=== PATIENT | male | born 2000 | race Caucasian/White ===

== ENCOUNTER 2018-02-10 16:41 | Emergency (ER) | payer OTHER ==
[2018-02-10] MEDS: IBUPROFEN 600 MG TAB PO (20:19)
[2018-02-10] MEDS: CEPHALEXIN 500 MG CAP PO (20:19)
== END 2018-02-10 20:23 | disposition home or self-care (01) ==
LOC: M ED 16:41
DX: L02.413 Cutaneous abscess of right upper limb (principal); L03.113 Cellulitis of right upper limb; W57.XXXA Bitten or stung by nonvenomous insect and other nonvenomous arthropods, initial encounter; Y92.89 Other specified places as the place of occurrence of the external cause; F17.210 Nicotine dependence, cigarettes, uncomplicated
CPT/HCPCS: 99283

== ENCOUNTER 2018-08-06 12:38 | Inpatient (IN) | payer OTHER ==
[~2018-08-06] VITALS: Ht 170.2 cm; Wt 70.1 kg
[~2018-08-06 12:38] MED LIST: IBUP-1022 PO; KEFL500C17 PO
[2018-08-06 13:26] LABS: HEMATOCRIT 44.7 % (42.0-52.0); HEMOGLOBIN 14.6 g/dl (13.5-17.5); MEAN CORPUSCULAR HEMOGLOBIN 28.6 pg (27.0-33.0); MEAN CORPUSCULAR HGB CONC 32.7 g/dl (32.0-36.5); MEAN CORPUSCULAR VOLUME 87.5 fl (80.0-96.0); PLATELET COUNT, AUTOMATED 262 10^3/uL (150-450); RED BLOOD COUNT 5.11 10^6/uL (4.30-6.10); WHITE BLOOD COUNT 5.9 10^3/uL (4.0-10.0)
[2018-08-06 13:46] LABS: AMPHETAMINES LEVEL URINE NEGATIVE (NEGATIVE); BARBITURATES URINE NEGATIVE (NEGATIVE); BENZODIAZEPINES URINE NEGATIVE (NEGATIVE); CANNABINOIDS URINE NEGATIVE (NEGATIVE); COCAINE METABOLITE URINE NEGATIVE (NEGATIVE); METHADONE URINE NEGATIVE (NEGATIVE); OPIATES URINE NEGATIVE (NEGATIVE); PHENCYCLIDINE URINE NEGATIVE (NEGATIVE)
[2018-08-06 14:02] LABS: ACETAMINOPHEN LEVEL < 2.0 UG/ML (10.0-30.0); ALT/SGPT 33 U/L (12-78); BILIRUBIN,DIRECT 0.1 MG/DL (0.0-0.2); BILIRUBIN,TOTAL 0.6 MG/DL (0.2-1.0); BLOOD UREA NITROGEN 8 MG/DL (7-18); CALCIUM LEVEL 8.6 MG/DL (8.5-10.1); CARBON DIOXIDE LEVEL 28 MEQ/L (21-32); CHLORIDE LEVEL 108 MEQ/L (98-107); CREATININE FOR GFR 0.74 MG/DL (0.70-1.30); GLUCOSE, FASTING 96 MG/DL (70-100); POTASSIUM SERUM 4.3 MEQ/L (3.5-5.1); SALICYLATE LEVEL < 1.7 MG/DL (5.0-30.0); SODIUM LEVEL 143 MEQ/L (136-145); TOTAL PROTEIN 7.3 GM/DL (6.4-8.2)
[2018-08-06 14:03] LABS: ETHYL ALCOHOL (ETHANOL) < 0.003 % (0.000-0.010)
[2018-08-06] MEDS ORDERED: MOM 30ML SUSPENSION UDC PO PRN (17:00)
[2018-08-06] MEDS ORDERED: MAALOX 30 ML SUSP *UDC PO PRN (17:00)
[2018-08-06] MEDS ORDERED: traZODone 50 MG TAB PO PRN (17:00)
[2018-08-06] MEDS ORDERED: ACETAMINOPHEN TAB 650MG DOSE (2X325MG) PO PRN (17:00)
[2018-08-06 18:12] VITALS: BP 143/78
[2018-08-07 06:04] VITALS: BP 126/68
--- NOTE | 2018-08-07 09:28 | HPEPDOC ---
[facility] Medical History & Physical Date of Admission Aug 06, 2018 History and Physical PCP: [facility] ATTENDING: Dr. Jennifer Mason HPI: 17yoM admitted to [facility] for unspecified depressive disorder, being medically examined today. No acute medical complaints today. Denies any fevers, chills, weakness, fatigue, LUA, CP, SOB, cough, palpitations, abdominal pain, N/V/D or changes in bowel or bladder habits. PMHx: anxiety depression SI PSHX: tympanostomy tubes wisdom teeth extraction SOCHX: Resides in: [facility], From [place] Marital Status: single Kids: enone Employment: Active duty Tobacco use: 1/2 ppd ETOH: 4-6 drinks per month Illicit Drugs: Denies IV Drug Use: Denies Tattoos done unprofessionally: Denies FAMHX: Mother: Alive, well Father: Alive, well Siblings: Alive, well Children: none Unexpected deaths due to medical reasons: None. ROS: As noted in HPI, otherwise 11pt ROS of systems reviewed and unremarkable. PE: GEN: 17yoM, appears stated age. Well-nourished, well developed. No acute distr ess. Alert and oriented x 3. Pleasant, interactive. HEENT: Normocephalic, atraumatic. Pupils are equal, round, and reactive to light. Extraocular movements are intact. No nystagmus appreciated. Sclera are nonicteric. Conjunctiva without injection. Nose midline. Nasal turbinates without bogginess. EACs both patent BL. TMs both visualized and rosado with good cone of light, no bulging or erythema. No facial asymmetry. Moist mucous membranes. Dentition fair. Pharynx pink and moist, no cobblestoning. Neck supple, trachea midline. No lymphadenopathy or thyromegaly appreciated. CHEST: Regular rate and rhythm, +S1, +S2 LUNGS: Clear to auscultation bilaterally. No wheezes, rales, or rhonchi. Breathi ng appears symmetric and easy. Patient is speaking in full sentences. No accessory muscle use. ABD: Round, soft, non-tender, non-distended. +Bowel sounds throughout. No rebound or guarding. No costovertebral angle tenderness. EXT: Pulses 2+ bilaterally dorsalis pedis and radial. No lower extremity edema appreciated. SKIN: [place], dry, warm. Capillary refill <2sec. No rashes. NEURO: Alert and oriented x 3. Cranial nerves III-XII are intact. No focal deficits appreciated. EKG: pending A&P: 17yoM admitted to [facility] for unspecified depressive disorder 1. Psych. Plan per Psychiatry. Obtain baseline EKG to assure the safety of psychiatric medications as they can prolong the QT interval. 2. Nicotine dependence. Patch available. 3. Follow up with PCP on discharge. 4. Staff member Bill present throughout exam. Vital Signs Vital Signs Date Time Temp Pulse Resp B/P (MAP) Pulse Ox O2 Delivery O2 Flow Rate FiO2 08/07/18 06:04 97.9 94 16 126/68 (87) 08/06/18 18:12 97 08/06/18 17:17 Room Air Laboratory Data Labs 24H Laboratory Tests 2 08/06/18 13:11: Nucleated Red Blood Cells % (auto) 0.0, Anion Gap 7L, Calcium Level 8.6, Aspartate Amino Transf (AST/SGOT) 31, Alanine Aminotransferase (ALT/SGPT) 33, Alkaline Phosphatase 86, Total Bilirubin 0.6, Direct Bilirubin 0.1, Total Protein 7.3, Albumin 4.0, Albumin/Globulin Ratio 1.21, Thyroid Stimulating Hormone (TSH) 2.570, Salicylates Level < 1.7L, Urine Amphetamines Screen NEGATIVE, Urine Benzodiazepines Screen NEGATIVE, Urine Opiates Screen NEGATIVE, Urine Methadone Screen NEGATIVE, Acetaminophen Level < 2.0L, Urine Barbiturates Screen NEGATIVE, Urine Phencyclidine Screen NEGATIVE, Urine Cocaine Metabolite Screen NEGATIVE, Urine Cannabinoids Screen NEGATIVE, Ethyl Alcohol Level < 0.003 CBC/BMP Laboratory Tests 08/06/18 13:11 Red Blood Count 5.11, Mean Corpuscular Volume 87.5, Mean Corpuscular Hemoglobin 28.6, Mean Corpuscular Hemoglobin Concent 32.7, Red Cell Distribution Width 12.2 Home Medications No Active Prescriptions or Reported Meds Allergies Coded Allergies: No Known Allergies (Unverified , 08/06/18) Katelyn Vidal Aug 07, 2018 09:28
[2018-08-07] MEDS: NICOTINE 21MG/24HR 1 EA TRANSDERMAL TD SCH ×2 (09:58→10:01)
[2018-08-07] MEDS ORDERED: hydrOXYzine 50 MG TAB PO PRN (15:15)
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
[2018-08-07 18:00] VITALS: BP 135/64
[2018-08-07] MEDS: MIRTAZAPINE 15 MG TAB PO SCH (21:49)
[2018-08-08 06:19] VITALS: BP 119/75
--- NOTE | 2018-08-08 08:40 | ECGEPIP ---
Stationary ECG Study [facility] ED Test Date: 2018-08-06 Pat Name: MARIA ELENA MUHAMMAD Department: Room: [place] [address] Gender: M Director Of Science: : 2000 Requested By: IVETTE Perez Order Number: [id number] Reading MD: Kika Wolfe Measurements Intervals [place] Rate: 72 P: 56 [place]: 164 QRS: 89 QRSD: 98 T: 48 QT: 357 QTc: 392 Interpretive Statements SINUS RHYTHM WITH MARKED SINUS ARRHYTHMIA NONSPECIFIC ST T WAVE CHANGES NO OLD ECG FOR COMPARISON Electronically Signed On 08-08-2018 8:39:43 EST by Kika Wolfe
[2018-08-08] MEDS ORDERED: SERTRALINE HCL 50 MG TAB PO SCH (09:00)
[2018-08-08] MEDS: NICOTINE 21MG/24HR 1 EA TRANSDERMAL TD SCH (09:27)
--- NOTE | 2018-08-08 10:12 | ECGEPIP ---
Stationary ECG Study [facility] Test Date: 2018-08-07 Pat Name: MARIA ELENA MUHAMMAD Department: Room: [place] [address] Gender: M Cyber Security Consultant: NARCISO : 2000 Requested By: Katelyn Vidal Order Number: [id number] Reading MD: Rc Hoskins Measurements Intervals [place] Rate: 74 P: 48 [place]: 158 QRS: 94 QRSD: 89 T: 61 QT: 345 QTc: 383 Interpretive Statements SINUS RHYTHM BORDERLINE RIGHT AXIS DEVIATION No sinus arrhythmia compared with 08/06/2018 at 1503 hrs. Electronically Signed On 08-08-2018 10:11:38 EST by Rc Hoskins
[2018-08-08 18:04] VITALS: BP 129/66
--- NOTE | 2018-08-08 18:22 | MHIPNPDOC ---
[facility] Progress Note Progress Note DATE OF SERVICE: 08/08/18 HISTORY: Patient attempted to hang himself History of Present Illness HISTORY OF THE PRESENT ILLNESS: Patient is a 17 -year-old , male, who, according to ED report: "Pt presented with chain of command after telling someone he attempted suicide yesterday. Pt says he used Uber to get a ride to [employer] and then attempted to hang self with his bootlaces in a hotel room. The coat rakesh in the closet broke and pt did not make any further attempts and returned to [place]. Pt says he has had frequent thoughts of various plans to commit suicide for months but has never acted upon them before yesterday. He says he has been very depressed since last Fall and this is made worse because he does not have any support and his co-workers do not like him or talk to him. He spends a great deal of time isolating himself from others. Pt spoke to his mother last night and told her of his attempt. Apparently she encouraged him to tell someone and come to the hospital. Pt denies any previous admissions to psych unit. Also denies any hx of tx, no medications, no problems with drugs or ETOH. Denies HI, A/VH. Pt continues to feel suicidal. He appears depressed. Speech is very soft. Eye contact is minimal. Pt's family resides in [place]. 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 NEW TEST RESULTS: See blow. CURRENT MEDICATIONS: See below. MENTAL STATUS EXAMINATION: Patient is a 17-year old male, who is alert, cooperative, unkempt, disheveled. Speech: Is spontaneous, fluent, normal rate, tone and volume. Language skills are good. Thought processes including: intact, linear, coherent. Thought content: He reports he still has SI, once every 3 hours and before he was experiencing twice an hour. Abstract reasoning, and computation: Good. Description of associations: good Description of abnormal or psychotic thoughts: patient denies homicidal ideation, denies AV hallucinations, denies thought delusions Judgment: poor Insight: poor Orientation: x 3 Recent and remote memory: intact Attention span and concentration: fair Fund of knowledge: average Mood: depressed Affect: congruent with mood, depressed. DIAGNOSES: 1. Major Depressive Disorder, severe, recurrent 2. CARYN 3. R/O PTSD ASSESSMENT:patient continues to be depressed, but he says he had more energy today compared to previous days. he says he was able to sleep better last night. Continues to endorse SI but they're less frequent than they used to be. He says that if he has SI that he can't control MANAGEMENT PLAN: Will increase Sertraline to 75 mgs PO daily, will encourage group attendance. TIME SPENT: 20 minutes. Vital Signs Vital Signs Date Time Temp Pulse Resp B/P (MAP) Pulse Ox O2 Delivery O2 Flow Rate FiO2 08/08/18 18:04 99.2 98 18 129/66 (87) 08/06/18 18:12 97 08/06/18 17:17 Room Air Current Medications Current Medications Acetaminophen (Tylenol Tab) 650 mg Q6HP PRN PO HEADACHE or DISCOMFORT; Start 08/06/18 at 17:00 Al Hydrox/Mg Hydrox/Simethicone (Mylanta) 30 ml Q4HP PRN PO HEARTBURN/INDIGESTION; Start 08/06/18 at 17:00 Home Med (Med Rec Complete!) ASDIRECTED XX ; Start 08/06/18 at 17:45; Stop 08/06/18 at 17:45; Status DC Hydroxyzine HCl (Atarax) 50 mg Q6HP PRN PO ANXIETY/AGITATION; Start 08/07/18 at 15:15 Magnesium Hydroxide (Milk Of Magnesia) 30 ml DAILYPRN PRN PO CONSTIPATION; Start 08/06/18 at 17:00 Mirtazapine (Remeron) 15 mg QHS PO Last administered on 08/07/18at 21:49; Start 08/07/18 at 21:00 Nicotine (Nicoderm Cq 21mg) 1 patch DAILY TD Last administered on 08/08/18at 09:27; Start 08/06/18 at 09:00 Sertraline HCl (Zoloft) 50 mg QAM PO Last administered on 08/08/18at 09:26; Start 08/08/18 at 09:00 Trazodone HCl (Desyrel) 50 mg QHSP PRN PO INSOMNIA; Start 08/06/18 at 17:00; S tatus Cancel Allergies Coded Allergies: No Known Allergies (Unverified , 08/06/18) EDUARDA PANDEY MD Aug 08, 2018 18:22
[2018-08-08] MEDS: MIRTAZAPINE 15 MG TAB PO SCH (22:21)
[2018-08-09 06:10] VITALS: BP 112/63
[2018-08-09] MEDS ORDERED: SERTRALINE HCL 50 MG TAB PO SCH (09:00)
[2018-08-09] MEDS: NICOTINE 21MG/24HR 1 EA TRANSDERMAL TD SCH (10:06)
[2018-08-09] MEDS ORDERED: SERTRALINE HCL 25 MG TABLET PO ONE (13:30)
--- NOTE | 2018-08-09 14:08 | MHIPNPDOC ---
[facility] Progress Note Progress Note DATE OF SERVICE: 08/09/18 HISTORY OF THE PRESENT ILLNESS: Patient is a 17 -year-old , male, who, according to ED report: "Pt presented with chain of command after telling someone he attempted suicide yesterday. Pt says he used Uber to get a ride to [place] and then attempted to hang self with his bootlaces in a hotel room. The coat rakesh in the closet broke and pt did not make any further attempts and returned to [place]. Pt says he has had frequent thoughts of various plans to commit suicide for months but has never acted upon them before yesterday. He says he has been very depressed since last Fall and this is made worse because he does not have any support and his co-workers do not like him or talk to him. He spends a great deal of time isolating himself from others. Pt spoke to his mother last night and told her of his attempt. Apparently she encouraged him to tell someone and come to the hospital. Pt denies any previous admissions to psych unit. Also denies any hx of tx, no medications, no problems with drugs or ETOH. Denies HI, A/VH. Pt co ntinues to feel suicidal. He appears depressed. Speech is very soft. Eye contact is minimal. Pt's family resides in [place]. 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 NEW TEST RESULTS: See blow. CURRENT MEDICATIONS: See below. MENTAL STATUS EXAMINATION: Patient is a 17-year old male, who is alert, cooperative, unkempt, disheveled. Speech: slow, low volume, spontaneous but not fluent. Language skills are good. Thought processes including: coherent but it is hard for him to answer at times because he thinks twice before he gives an answer, he is very afraid of rejection. Thought content: He reports he still has SI, once every 3 hours and before he was experiencing twice an hour. Abstract reasoning, and computation: Good. Description of associations: good Description of abnormal or psychotic thoughts: patient denies homicidal ideation, denies AV hallucinations, denies thought delusions Judgment: poor Insight: poor Orientation: x 3 Recent and remote memory: intact Attention span and concentration: fair Fund of knowledge: average Mood: depressed Affect: congruent with mood, depressed. DIAGNOSES: 1. Major Depressive Disorder, severe, recurrent 2. CARYN 3. R/O PTSD ASSESSMENT: Increased Sertraline to 100 mgs today and started him on Abilify 2.5 mgs PO BID. encouraged him to have a shower, to take care of himself. Explained that we understand he has not been doing it because he has been very depressed, extremely depressed but by doing this he will feel better with himself. 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 TW explained that jack tamp operator must contact [facility] to see if they are agreeable to him going for [facility]. he said he was going to go and have a shower and he would try to attend groups MANAGEMENT PLAN: Increase Sertraline to 100 mgs Po daily and start Abilify 2.5 mgs PO BID TIME SPENT: 20 minutes. Vital Signs Vital Signs Date Time Temp Pulse Resp B/P (MAP) Pulse Ox O2 Delivery O2 Flow Rate FiO2 08/09/18 06:10 98.8 67 14 112/63 (79) 08/06/18 18:12 97 08/06/18 17:17 Room Air Current Medications Current Medications Acetaminophen (Tylenol Tab) 650 mg Q6HP PRN PO HEADACHE or DISCOMFORT; Start 08/06/18 at 17:00 Al Hydrox/Mg Hydrox/Simethicone (Mylanta) 30 ml Q4HP PRN PO HEARTBURN/INDIGESTION; Start 08/06/18 at 17:00 Home Med (Med Rec Complete!) ASDIRECTED XX ; Start 08/06/18 at 17:45; Stop 08/06/18 at 17:45; Status DC Hydroxyzine HCl (Atarax) 50 mg Q6HP PRN PO ANXIETY/AGITATION; Start 08/07/18 at 15:15 Magnesium Hydroxide (Milk Of Magnesia) 30 ml DAILYPRN PRN PO CONSTIPATION; Start 08/06/18 at 17:00 Mirtazapine (Remeron) 15 mg QHS PO Last administered on 08/08/18at 22:21; Start 08/07/18 at 21:00 Nicotine (Nicoderm Cq 21mg) 1 patch DAILY TD Last administered on 08/09/18at 10:06; Start 08/06/18 at 09:00 Sertraline HCl (Zoloft) 50 mg QAM PO Last administered on 08/08/18at 09:26; Start 08/08/18 at 09:00; Stop 08/08/18 at 18:42; Status DC Sertraline HCl (Zoloft) 75 mg QAM PO Last administered on 08/09/18at 10:06; Start 08/09/18 at 09:00 Trazodone HCl (Desyrel) 50 mg QHSP PRN PO INSOMNIA; Start 08/06/18 at 17:00; S tatus Cancel Allergies Coded Allergies: No Known Allergies (Unverified , 08/06/18) EDUARDA PANDEY MD Aug 09, 2018 10:58
[2018-08-09] MEDS: ARIPiprazole 2 MG TAB PO SCH ×2 (14:21→21:41)
[2018-08-09 18:02] VITALS: BP 156/78
[2018-08-09] MEDS: MIRTAZAPINE 15 MG TAB PO SCH (21:41)
[2018-08-10 06:00] VITALS: BP 116/65
[2018-08-10] MEDS: NICOTINE 21MG/24HR 1 EA TRANSDERMAL TD SCH (08:38)
[2018-08-10] MEDS: ARIPiprazole 2 MG TAB PO SCH (08:38)
[2018-08-10] MEDS: SERTRALINE 100 MG TAB PO SCH (08:38)
--- NOTE | 2018-08-10 16:47 | MHIPNPDOC ---
[facility] Progress Note Progress Note DATE OF SERVICE: 08/10/18 HISTORY OF THE PRESENT ILLNESS: Patient is a 17 -year-old , male, who, according to ED report: "Pt presented with chain of command after telling someone he attempted suicide yesterday. Pt says he used Uber to get a ride to [place] and then attempted to hang self with his bootlaces in a hotel room. The coat rakesh in the closet broke and pt did not make any further attempts and returned to [place]. Pt says he has had frequent thoughts of various plans to commit suicide for months but has never acted upon them before yesterday. He says he has been very depressed since last Fall and this is made worse because he does not have any support and his co-workers do not like him or talk to him. He spends a great deal of time isolating himself from others. Pt spoke to his mother last night and told her of his attempt. Apparently she encouraged him to tell someone and come to the hospital. Pt denies any previous admissions to psych unit. Also denies any hx of tx, no medications, no problems with drugs or ETOH. Denies HI, A/VH. Pt co ntinues to feel suicidal. He appears depressed. Speech is very soft. Eye contact is minimal. Pt's family resides in [place]. 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 NEW TEST RESULTS: See blow. CURRENT MEDICATIONS: See below. MENTAL STATUS EXAMINATION: Patient is a 17-year old male, who is alert, cooperative, unkempt, disheveled. Speech: slow, low volume, spontaneous but not fluent. Language skills are good. Thought processes including: coherent but it is hard for him to answer at times because he thinks twice before he gives an answer, he is very afraid of rejection. Thought content: He reports he still has SI, once every 3 hours and before he was experiencing twice an hour. Abstract reasoning, and computation: Good. Description of associations: good Description of abnormal or psychotic thoughts: patient denies homicidal ideation, denies AV hallucinations, denies thought delusions Judgment: poor Insight: poor Orientation: x 3 Recent and remote memory: intact Attention span and concentration: fair Fund of knowledge: average Mood: depressed Affect: congruent with mood, depressed. DIAGNOSES: 1. Major Depressive Disorder, severe, recurrent 2. CARYN 3. R/O PTSD ASSESSMENT: MANAGEMENT PLAN: will continue with Sertraline 100 mgs Po daily and will decrease Abilify from 2 mgs PO bid to 2 mgs Po QAM. he has agreed to go to senior living treatment. TIME SPENT: 20 minutes. Vital Signs Vital Signs Date Time Temp Pulse Resp B/P (MAP) Pulse Ox O2 Delivery O2 Flow Rate FiO2 08/10/18 06:00 98.0 80 18 116/65 (82) 97 08/06/18 17:17 Room Air Current Medications Current Medications Acetaminophen (Tylenol Tab) 650 mg Q6HP PRN PO HEADACHE or DISCOMFORT; Start 08/06/18 at 17:00 Al Hydrox/Mg Hydrox/Simethicone (Mylanta) 30 ml Q4HP PRN PO HEARTBURN/INDIGESTION; Start 08/06/18 at 17:00 Aripiprazole (AbiLIFY) 2 mg BID PO Last administered on 08/10/18 08:38; Start 08/09/18 at 09:00 Home Med (Med Rec Complete!) ASDIRECTED XX ; Start 08/06/18 at 17:45; Stop 08/06/18 at 17:45; Status DC Hydroxyzine HCl (Atarax) 50 mg Q6HP PRN PO ANXIETY/AGITATION; Start 08/07/18 at 15:15 Magnesium Hydroxide (Milk Of Magnesia) 30 ml DAILYPRN PRN PO CONSTIPATION; Start 08/06/18 at 17:00 Mirtazapine (Remeron) 15 mg QHS PO Last administered on 08/09/18at 21:41; Start 08/07/18 at 21:00 Nicotine (Nicoderm Cq 21mg) 1 patch DAILY TD Last administered on 08/10/18at 08:38; Start 08/06/18 at 09:00 Sertraline HCl (Zoloft) 50 mg QAM PO Last administered on 08/08/18at 09:26; Start 08/08/18 at 09:00; Stop 08/08/18 at 18:42; Status DC Sertraline HCl (Zoloft) 75 mg QAM PO Last administered on 08/09/18at 10:06; Start 08/09/18 at 09:00; Stop 08/09/18 at 13:21; Status DC Sertraline HCl (Zoloft) 100 mg QAM PO Last administered on 08/10/18at 08:38; Start 08/10/18 at 09:00 Trazodone HCl (Desyrel) 50 mg QHSP PRN PO INSOMNIA; Start 08/06/18 at 17:00; Status Cancel Allergies Coded Allergies: No Known Allergies (Unverified , 08/06/18) EDUARDA PANDEY MD Aug 10, 2018 12:25
[2018-08-10 18:00] VITALS: BP 130/67
[2018-08-10] MEDS: MIRTAZAPINE 15 MG TAB PO SCH (21:50)
[2018-08-11 06:35] VITALS: BP 137/76
[2018-08-11] MEDS: NICOTINE 21MG/24HR 1 EA TRANSDERMAL TD SCH (08:53)
[2018-08-11] MEDS: ARIPiprazole 2 MG TAB PO SCH (08:53)
[2018-08-11] MEDS: SERTRALINE 100 MG TAB PO SCH (08:53)
--- NOTE | 2018-08-11 17:09 | MHIPNPDOC ---
[facility] Progress Note Progress Note DATE OF SERVICE: 08/11/18 HISTORY OF THE PRESENT ILLNESS: Patient is a 17 -year-old , male, who, according to ED report: "Pt presented with chain of command after telling someone he attempted suicide yesterday. Pt says he used Uber to get a ride to [employer] and then attempted to hang self with his bootlaces in a hotel room. The coat rakesh in the closet broke and pt did not make any further attempts and returned to [place]. Pt says he has had frequent thoughts of various plans to commit suicide for months but has never acted upon them before yesterday. He says he has been very depressed since last Fall and this is made worse because he does not have any support and his co-workers do not like him or talk to him. He spends a great deal of time isolating himself from others. Pt spoke to his mother last night and told her of his attempt. Apparently she encouraged him to tell someone and come to the hospital. Pt denies any previous admissions to psych unit. Also denies any hx of tx, no medications, no problems with drugs or ETOH. Denies HI, A/VH. Pt co ntinues to feel suicidal. He appears depressed. Speech is very soft. Eye contact is minimal. Pt's family resides in [place]. 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 NEW TEST RESULTS: See blow. CURRENT MEDICATIONS: See below. MENTAL STATUS EXAMINATION: Patient is a 17-year old male, who is alert, cooperative, unkempt, disheveled. Speech: slow, low volume, spontaneous but not fluent. Language skills are good. Thought processes including: linear, coherent, a little concrete Thought content: He reports he still has SI, less frequent Abstract reasoning, and computation: Good. Description of associations: good Description of abnormal or psychotic thoughts: patient denies homicidal ideation, denies AV hallucinations, denies thought delusions Judgment: poor Insight: poor Orientation: x 3 Recent and remote memory: intact Attention span and concentration: fair Fund of knowledge: average Mood: depressed Affect: congruent with mood, depressed. DIAGNOSES: 1. Major Depressive Disorder, severe, recurrent 2. CARYN 3. R/O PTSD ASSESSMENT: Improving, but he still is depressed, has psychomotor retardation, anhedonia. Poor self esteem, helpless but he is less hopeless. Continues to endorse SI, but with less frequency MANAGEMENT PLAN:will increase Sertraline to 150 mgs PO QAM. will continue with Abilify 2 mgs PO QAM TIME SPENT: 20 minutes. Vital Signs Vital Signs Date Time Temp Pulse Resp B/P (MAP) Pulse Ox O2 Delivery O2 Flow Rate FiO2 08/11/18 06:35 98.8 68 18 137/76 (96) 08/10/18 06:00 97 08/06/18 17:17 Room Air Current Medications Current Medications Acetaminophen (Tylenol Tab) 650 mg Q6HP PRN PO HEADACHE or DISCOMFORT; Start at 17:00 Al Hydrox/Mg Hydrox/Simethicone (Mylanta) 30 ml Q4HP PRN PO HEARTBURN/INDIGESTION; Start 08/06/18 at 17:00 Aripiprazole (AbiLIFY) 2 mg BID PO Last administered on 08/10/18at 08:38; Start 08/09/18 at 09:00; Stop 08/10/18 at 15:58; Status DC Aripiprazole (AbiLIFY) 2 mg QAM PO Last administered on 08/11/18at 08:53; Start 08/11/18 at 09:00 Home Med (Med Rec Complete!) ASDIRECTED XX ; Start 08/06/18 at 17:45; Stop 08/06/18 at 17:45; Status DC Hydroxyzine HCl (Atarax) 50 mg Q6HP PRN PO ANXIETY/AGITATION; Start 08/07/18 at 15:15 Magnesium Hydroxide (Milk Of Magnesia) 30 ml DAILYPRN PRN PO CONSTIPATION; Start 08/06/18 at 17:00 Mirtazapine (Remeron) 15 mg QHS PO Last administered on 08/10/18at 21:50; Start 08/07/18 at 21:00 Nicotine (Nicoderm Cq 21mg) 1 patch DAILY TD Last administered on 08/11/18at 08:53; Start 08/06/18 at 09:00 Sertraline HCl (Zoloft) 50 mg QAM PO Last administered on 08/08/18at 09:26; Start 08/08/18 at 09:00; Stop 08/08/18 at 18:42; Status DC Sertraline HCl (Zoloft) 75 mg QAM PO Last administered on 08/09/18at 10:06; Start 08/09/18 at 09:00; Stop 08/09/18 at 13:21; Status DC Sertraline HCl (Zoloft) 100 mg QAM PO Last administered on 08/11/18at 08:53; Start 08/10/18 at 09:00 Trazodone HCl (Desyrel) 50 mg QHSP PRN PO INSOMNIA; Start 08/06/18 at 17:00; Status Cancel Allergies Coded Allergies: No Known Allergies (Unverified , 08/06/18) EDUARDA PANDEY MD Aug 11, 2018 17:09
[2018-08-11 18:10] VITALS: BP 136/80
[2018-08-11] MEDS: MIRTAZAPINE 15 MG TAB PO SCH (21:05)
[2018-08-12 06:14] VITALS: BP 129/81
[2018-08-12] MEDS: ARIPiprazole 2 MG TAB PO SCH (08:33)
[2018-08-12] MEDS: SERTRALINE 100 MG TAB PO SCH (08:33)
[2018-08-12] MEDS: NICOTINE 21MG/24HR 1 EA TRANSDERMAL TD SCH (08:34)
--- NOTE | 2018-08-12 17:08 | MHIPNPDOC ---
[facility] Progress Note Progress Note DATE OF SERVICE: 08/12/18 HISTORY OF THE PRESENT ILLNESS: Patient is a 17 -year-old , male, who, according to ED report: "Pt presented with chain of command after telling someone he attempted suicide yesterday. Pt says he used Uber to get a ride to [place] and then attempted to hang self with his bootlaces in a hotel room. The coat rakesh in the closet broke and pt did not make any further attempts and returned to [place]. Pt says he has had frequent thoughts of various plans to commit suicide for months but has never acted upon them before yesterday. He says he has been very depressed since last Fall and this is made worse because he does not have any support and his co-workers do not like him or talk to him. He spends a great deal of time isolating himself from others. Pt spoke to his mother last night and told her of his attempt. Apparently she encouraged him to tell someone and come to the hospital. Pt denies any previous admissions to psych unit. Also denies any hx of tx, no medications, no problems with drugs or ETOH. Denies HI, A/VH. Pt co ntinues to feel suicidal. He appears depressed. Speech is very soft. Eye contact is minimal. Pt's family resides in [place]. 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 NEW TEST RESULTS: See blow. CURRENT MEDICATIONS: See below. MENTAL STATUS EXAMINATION: Patient is a 17-year old male, who is alert, cooperative, hygiene and grooming have improved a little Speech: slow, low volume, spontaneous, more fluent Language skills are good. Thought processes including: linear, coherent Thought content: He reports he still has SI, still one suicidal thought every 3 hours Abstract reasoning, and computation: Good. Description of associations: good Description of abnormal or psychotic thoughts: patient denies homicidal ideation, denies AV hallucinations, denies thought delusions Judgment: poor Insight: poor Orientation: x 3 Recent and remote memory: intact Attention span and concentration: fair Fund of knowledge: average Mood: depressed Affect: congruent with mood, depressed. DIAGNOSES: 1. Major Depressive Disorder, severe, recurrent 2. CARYN 3. R/O PTSD ASSESSMENT: Patient still reports one suicidal thought every 3 hours but he is looking a little bit better. He says he has been sleeping well and he looks rested. He smiled at the end of our conversation. He wants to get better and he is hopeful that the treatment program in [place] will be able to help him MANAGEMENT PLAN: Sertraline 150 mgs Abilify 5 mgs PO QHS Mirtazapine 15 mgs Po QHS Atarax 50 mgs PO Q6HP for anxiety TIME SPENT: 20 minutes. Vital Signs Vital Signs Date Time Temp Pulse Resp B/P (MAP) Pulse Ox O2 Delivery O2 Flow Rate FiO2 08/12/18 06:14 97.5 73 18 129/81 (97) 08/10/18 06:00 97 08/06/18 17:17 Room Air Current Medications Current Medications Acetaminophen (Tylenol Tab) 650 mg Q6HP PRN PO HEADACHE or DISCOMFORT; Start 08/06/18 at 17:00 Al Hydrox/Mg Hydrox/Simethicone (Mylanta) 30 ml Q4HP PRN PO HEARTBURN/INDIGES TION; Start 08/06/18 at 17:00 Aripiprazole (AbiLIFY) 2 mg BID PO Last administered on 08/10/18at 08:38; Start 08/09/18 at 09:00; Stop 08/10/18 at 15:58; Status DC Aripiprazole (AbiLIFY) 2 mg QAM PO Last administered on 08/12/18at 08:33; Start 08/11/18 at 09:00 Home Med (Med Rec Complete!) ASDIRECTED XX ; Start 08/06/18 at 17:45; Stop 08/06/18 at 17:45; Status DC Hydroxyzine HCl (Atarax) 50 mg Q6HP PRN PO ANXIETY/AGITATION; Start 08/07/18 at 15:15 Magnesium Hydroxide (Milk Of Magnesia) 30 ml DAILYPRN PRN PO CONSTIPATION; Start 08/06/18 at 17:00 Mirtazapine (Remeron) 15 mg QHS PO Last administered on 08/11/18at 21:05; Start 08/07/18 at 21:00 Nicotine (Nicoderm Cq 21mg) 1 patch DAILY TD Last administered on 08/12/18at 08:34; Start 08/06/18 at 09:00 Sertraline HCl (Zoloft) 50 mg QAM PO Last administered on 08/08/18at 09:26; Start 08/08/18 at 09:00; Stop 08/08/18 at 18:42; Status DC Sertraline HCl (Zoloft) 75 mg QAM PO Last administered on 08/09/18at 10:06; Start 08/09/18 at 09:00; Stop 08/09/18 at 13:21; Status DC Sertraline HCl (Zoloft) 100 mg QAM PO Last administered on 08/12/18at 08:33; Start 08/10/18 at 09:00; Stop 08/12/18 at 11:03; Status DC Sertraline HCl (Zoloft) 150 mg QAM PO ; Start 08/13/18 at 09:00 Trazodone HCl (Desyrel) 50 mg QHSP PRN PO INSOMNIA; Start 08/06/18 at 17:00; Status Cancel Allergies Coded Allergies: No Known Allergies (Unverified , 08/06/18) EDUARDA PANDEY MD Aug 12, 2018 17:08
[2018-08-12 18:20] VITALS: BP 137/65
[2018-08-12] MEDS: MIRTAZAPINE 15 MG TAB PO SCH (22:20)
[2018-08-12] MEDS ORDERED: traZODone 50 MG TAB PO ONE (23:30)
[2018-08-13 06:35] VITALS: BP 121/59
[2018-08-13] MEDS: SERTRALINE HCL 50 MG TAB PO SCH (08:17)
[2018-08-13] MEDS: NICOTINE 21MG/24HR 1 EA TRANSDERMAL TD SCH (08:18)
[2018-08-13 18:00] VITALS: BP 135/74
--- NOTE | 2018-08-13 18:05 | MHIPNPDOC ---
[facility] Progress Note Progress Note DATE OF SERVICE: 08/13/18 HISTORY OF THE PRESENT ILLNESS: Patient is a 17 -year-old , male, who, according to ED report: "Pt presented with chain of command after telling someone he attempted suicide yesterday. Pt says he used Uber to get a ride to [place] and then attempted to hang self with his bootlaces in a hotel room. The coat rakesh in the closet broke and pt did not make any further attempts and returned to [place]. Pt says he has had frequent thoughts of various plans to commit suicide for months but has never acted upon them before yesterday. He says he has been very depressed since last Fall and this is made worse because he does not have any support and his co-workers do not like him or talk to him. He spends a great deal of time isolating himself from others. Pt spoke to his mother last night and told her of his attempt. Apparently she encouraged him to tell someone and come to the hospital. Pt denies any previous admissions to psych unit. Also denies any hx of tx, no medications, no problems with drugs or ETOH. Denies HI, A/VH. Pt co ntinues to feel suicidal. He appears depressed. Speech is very soft. Eye contact is minimal. Pt's family resides in [place]. 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 NEW TEST RESULTS: See blow. CURRENT MEDICATIONS: See below. MENTAL STATUS EXAMINATION: Patient is a 17-year old male, who is alert, cooperative, hygiene and grooming have improved a little Speech: slow, low volume, spontaneous, more fluent Language skills are good. Thought processes including: linear, coherent Thought content: He reports he still has SI, still one suicidal thought every 5 hours 9 an improvement from yesterday when it was one q3 hours) Abstract reasoning, and computation: Good. Description of associations: good Description of abnormal or psychotic thoughts: patient denies homicidal ideation, denies AV hallucinations, denies thought delusions Judgment: poor Insight: poor Orientation: x 3 Recent and remote memory: intact Attention span and concentration: fair Fund of knowledge: average Mood: depressed Affect: congruent with mood, depressed. DIAGNOSES: 1. Major Depressive Disorder, severe, recurrent 2. CARYN 3. R/O PTSD ASSESSMENT: Patient was seen at the Activity Room. He was coloring because he says it relaxes him. He reported an improvement in his suicidal thoughts, he reported one every 5 hours but he still reported feeling depressed but less than when he was admitted. He will be going to "[place] possibly next Friday. PINKY will communicate with Fabian Mcginnis tomorrow to confirm about his departure date. He is hopeful he will receive the help that he needs once he goes for usp treatment. MANAGEMENT PLAN: Sertraline 150 mgs Abilify 5 mgs PO QHS Mirtazapine 15 mgs Po QHS Atarax 50 mgs PO Q6HP for anxiety TIME SPENT: 20 minutes. Vital Signs Vital Signs Date Time Temp Pulse Resp B/P (MAP) Pulse Ox O2 Delivery O2 Flow Rate FiO2 08/13/18 06:35 98.3 80 14 121/59 (79) 08/10/18 06:00 97 Current Medications Current Medications Acetaminophen (Tylenol Tab) 650 mg Q6HP PRN PO HEADACHE or DISCOMFORT; Start 08/06/18 at 17:00 Al Hydrox/Mg Hydrox/Simethicone (Mylanta) 30 ml Q4HP PRN PO HEARTBURN/INDIGESTION; Start 08/06/18 at 17:00 Aripiprazole (AbiLIFY) 2 mg BID PO Last administered on 08/10/18at 08:38; Start 08/09/18 at 09:00; Stop 08/10/18 at 15:58; Status DC Aripiprazole (AbiLIFY) 2 mg QAM PO Last administered on 08/12/18at 08:33; Start 08/11/18 at 09:00; Stop 08/12/18 at 16:22; Status DC Aripiprazole (AbiLIFY) 5 mg QHS PO Last administered on 08/12/18at 22:20; Start 08/12/18 at 21:00 Home Med (Med Rec Complete!) ASDIRECTED XX ; Start 08/06/18 at 17:45; Stop 08/06/18 at 17:45; Status DC Hydroxyzine HCl (Atarax) 50 mg Q6HP PRN PO ANXIETY/AGITATION; Start 08/07/18 at 15:15 Magnesium Hydroxide (Milk Of Magnesia) 30 ml DAILYPRN PRN PO CONSTIPATION; Start 08/06/18 at 17:00 Mirtazapine (Remeron) 15 mg QHS PO Last administered on 08/12/18at 22:20; Start 08/07/18 at 21:00 Nicotine (Nicoderm Cq 21mg) 1 patch DAILY TD Last administered on 08/13/18at 08:18; Start 08/06/18 at 09:00 Sertraline HCl (Zoloft) 50 mg QAM PO Last administered on 08/08/18at 09:26; Start 08/08/18 at 09:00; Stop 08/08/18 at 18:42; Status DC Sertraline HCl (Zoloft) 75 mg QAM PO Last administered on 08/09/18at 10:06; Start 08/09/18 at 09:00; Stop 08/09/18 at 13:21; Status DC Sertraline HCl (Zoloft) 100 mg QAM PO Last administered on 08/12/18at 08:33; Start 08/10/18 at 09:00; Stop 08/12/18 at 11:03; Status DC Sertraline HCl (Zoloft) 150 mg QAM PO Last administered on 08/13/18at 08:17; Start 08/13/18 at 09:00 Trazodone HCl (Desyrel) 50 mg QHSP PRN PO INSOMNIA; Start 08/06/18 at 17:00; Status Cancel Allergies Coded Allergies: No Known Allergies (Unverified , 08/06/18) EDUARDA PANDEY MD Aug 13, 2018 18:05
[2018-08-13] MEDS: MIRTAZAPINE 15 MG TAB PO SCH (21:00)
[2018-08-14 06:00] VITALS: BP 149/78
[2018-08-14] MEDS: NICOTINE 21MG/24HR 1 EA TRANSDERMAL TD SCH (08:08)
[2018-08-14] MEDS: SERTRALINE HCL 50 MG TAB PO SCH (08:08)
[2018-08-14 18:02] VITALS: BP 137/87
--- NOTE | 2018-08-14 21:15 | MHIPNPDOC ---
[facility] Progress Note Progress Note DATE OF SERVICE: 08/14/18 HISTORY OF THE PRESENT ILLNESS: Patient is a 17 -year-old , male, who, according to ED report: "Pt presented with chain of command after telling someone he attempted suicide yesterday. Pt says he used Uber to get a ride to [place] and then attempted to hang self with his bootlaces in a hotel room. The coat rakesh in the closet broke and pt did not make any further attempts and returned to [place]. Pt says he has had frequent thoughts of various plans to commit suicide for months but has never acted upon them before yesterday. He says he has been very depressed since last Fall and this is made worse because he does not have any support and his co-workers do not like him or talk to him. He spends a great deal of time isolating himself from others. Pt spoke to his mother last night and told her of his attempt. Apparently she encouraged him to tell someone and come to the hospital. Pt denies any previous admissions to psych unit. Also denies any hx of tx, no medications, no problems with drugs or ETOH. Denies HI, A/VH. Pt co ntinues to feel suicidal. He appears depressed. Speech is very soft. Eye contact is minimal. Pt's family resides in [place]. 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 NEW TEST RESULTS: See blow. CURRENT MEDICATIONS: See below. MENTAL STATUS EXAMINATION: Patient is a 17-year old male, who is alert, cooperative, hygiene and grooming have improved a little Speech: slow, low volume, spontaneous, more fluent Language skills are good. Thought processes including: linear, coherent Thought content: He reports he still has SI, less frequent Abstract reasoning, and computation: Good. Description of associations: good Description of abnormal or psychotic thoughts: patient denies homicidal ideation, denies AV hallucinations, denies thought delusions Judgment: poor Insight: poor Orientation: x 3 Recent and remote memory: intact Attention span and concentration: fair Fund of knowledge: average Mood: depressed Affect: congruent with mood, depressed. DIAGNOSES: 1. Major Depressive Disorder, severe, recurrent 2. CARYN 3. R/O PTSD ASSESSMENT: Patient continues to feel an improvement in his mood, his depression is a 6/10 and his anxiety a 4/10. He is optimistic about him going to usp treatment. He is scheduled to fly to [place] on Friday when he will be discharged to his [facility]. Will increase Sertraline dose to 200 mgs. daily MANAGEMENT PLAN: Sertraline 200 mgs Abilify 5 mgs PO QHS Mirtazapine 15 mgs Po QHS Atarax 50 mgs PO Q6HP for anxiety TIME SPENT: 20 minutes. Vital Signs Vital Signs Date Time Temp Pulse Resp B/P (MAP) Pulse Ox O2 Delivery O2 Flow Rate FiO2 08/14/18 18:02 98.2 92 18 137/87 (104) 08/10/18 06:00 97 Current Medications Current Medications Acetaminophen (Tylenol Tab) 650 mg Q6HP PRN PO HEADACHE or DISCOMFORT; Start 08/06/18 at 17:00 Al Hydrox/Mg Hydrox/Simethicone (Mylanta) 30 ml Q4HP PRN PO HEARTBURN/INDIGESTION; Start 08/06/18 at 17:00 Aripiprazole (AbiLIFY) 2 mg BID PO Last administered on 08/10/18at 08:38; Start 08/09/18 at 09:00; Stop 08/10/18 at 15:58; Status DC Aripiprazole (AbiLIFY) 2 mg QAM PO Last administered on 08/12/18at 08:33; Start 08/11/18 at 09:00; Stop 08/12/18 at 16:22; Status DC Aripiprazole (AbiLIFY) 5 mg QHS PO Last administered on 08/12/18at 22:20; Start 08/12/18 at 21:00 Home Med (Med Rec Complete!) ASDIRECTED XX ; Start 08/06/18 at 17:45; Stop 08/06/18 at 17:45; Status DC Hydroxyzine HCl (Atarax) 50 mg Q6HP PRN PO ANXIETY/AGITATION; Start 08/07/18 at 15:15 Magnesium Hydroxide (Milk Of Magnesia) 30 ml DAILYPRN PRN PO CONSTIPATION; Start 08/06/18 at 17:00 Mirtazapine (Remeron) 15 mg QHS PO Last administered on 08/12/18at 22:20; Start 08/07/18 at 21:00 Nicotine (Nicoderm Cq 21mg) 1 patch DAILY TD Last administered on 08/13/18 08:18; Start 08/06/18 at 09:00 Sertraline HCl (Zoloft) 50 mg QAM PO Last administered on 08/08/18at 09:26; Sta rt 08/08/18 at 09:00; Stop 08/08/18 at 18:42; Status DC Sertraline HCl (Zoloft) 75 mg QAM PO Last administered on 08/09/18at 10:06; Start 08/09/18 at 09:00; Stop 08/09/18 at 13:21; Status DC Sertraline HCl (Zoloft) 100 mg QAM PO Last administered on 08/12/18at 08:33; Start 08/10/18 at 09:00; Stop 08/12/18 at 11:03; Status DC Sertraline HCl (Zoloft) 150 mg QAM PO Last administered on 08/14/18at 08:08; Start 08/13/18 at 09:00; Stop 08/14/18 at 13:23; Status DC Sertraline HCl (Zoloft) 200 mg QAM PO ; Start 08/15/18 at 09:00 Trazodone HCl (Desyrel) 50 mg QHSP PRN PO INSOMNIA; Start 08/06/18 at 17:00; Status Cancel Allergies Coded Allergies: No Known Allergies (Unverified , 08/06/18) EDUARDA PNADEY MD Aug 14, 2018 21:15
[2018-08-14] MEDS: MIRTAZAPINE 15 MG TAB PO SCH (21:29)
[2018-08-15 06:16] VITALS: BP 145/92
[2018-08-15] MEDS: NICOTINE 21MG/24HR 1 EA TRANSDERMAL TD SCH (09:00)
[2018-08-15] MEDS: SERTRALINE 100 MG TAB PO SCH (09:00)
[2018-08-15 18:35] VITALS: BP 142/88
[2018-08-15] MEDS: MIRTAZAPINE 15 MG TAB PO SCH (21:01)
[2018-08-15] MEDS ORDERED: ARIP5TA PO (21:36)
[2018-08-15] MEDS ORDERED: MIRT15TA3 PO (21:36)
[2018-08-15] MEDS ORDERED: SERT-138 PO (21:36)
[2018-08-15] MEDS ORDERED: HYDRO50TAB PO (21:36)
[2018-08-15] MEDS ORDERED: NICO21PAT TD (21:36)
[2018-08-16 06:10] VITALS: BP 139/70
[2018-08-16] MEDS: SERTRALINE 100 MG TAB PO SCH (08:21)
[2018-08-16] MEDS: NICOTINE 21MG/24HR 1 EA TRANSDERMAL TD SCH (08:21)
--- NOTE | 2018-08-17 21:33 | MHDSPDOC ---
[facility] Discharge Summary Discharge Summary DATE OF ADMISSION: Aug 06, 2018 at 17:00 DATE OF DISCHARGE: Aug 16, 2018 at 16:00 DISCHARGE DIAGNOSES: 1. Major Depressive Disorder, severe, recurrent 2. CARYN 3. R/O PTSD REASON FOR ADMISSION: Patient is a 17 -year-old , male, who, according to ED report: "Pt presented with chain of command after telling someone he attempted suicide yesterday. Pt says he used Uber to get a ride to [place] [employer] and then attempted to hang self with his bootlaces in a hotel room. The coat rakesh in the closet broke and pt did not make any further attempts and returned to [place]. Pt says he has had frequent thoughts of various plans to commit suicide for months but has never acted upon them before yesterday. He says he has been very depressed since last Fall and this is made worse because he does not have any support and his co-workers do not like him or talk to him. He spends a great deal of time isolating himself from others. Pt spoke to his mother last night and told her of his attempt. Apparently she encouraged him to tell someone and come to the hospital. Pt denies any previous admissions to psych unit. Also denies any hx of tx, no medications, no problems with drugs or ETOH. Denies HI, A/VH. Pt continues to feel suicidal. He appears depressed. Speech is very soft. Eye contact is minimal. Pt's family resides in [place]. He has spent one year in the and has never been deployed" CONSULTANTS INVOLVED: None TREATMENT AND PROGRESS ON THE UNIT : Upon initial evaluation the patient presented very depressed, with very low self esteem, very frequent suicidal thoughts, very intense. He had poor eye contact, his speech was impoverished, he had neglected his hygiene and attire. He was very sad and he said he had recently broke up with his girlfriend who apparently had to go to [place] and it seemed that he didn't want to accept that she didn't request going there, she was being sent, so, there was nothing that she could do about it, but for him it was one of the triggers, the other one being the fact that he said his higher ups didn't treat him well, they complained about him being late, neglecting his hygiene. He was depressed, severely, and he had attempted against his life just before being admitted. He probably was late to work and had neglected his hygiene because he was very depressed. He had a good response to medications but his suicidal thoughts were difficult to treat, they were very resistant. Just two days before being transferred to [facility] he had said that the suicidal thoughts were still there, but less frequently, it was one SI every 5 hours instead of one every 3 hours. HOSPITAL COURSE: As above DISCHARGE ASSESSMENT: Patient had suicidal thoughts without a specific plan, he was still depressed, he was not homicidal and not psychotic at the time of his discharge/transfer to [facility] [place] [place] in [place] where he went for continuation of treatment for stabilization. MENTAL STATUS EXAMINATION ON DISCHARGE: Patient is a 17-year old male, who is alert, cooperative, hygiene and grooming have improved a little Speech: slow, low volume, spontaneous, more fluent Language skills are good. Thought processes including: linear, coherent Thought content: He reports he still has SI, less frequent Abstract reasoning, and computation: Good. Description of associations: good Description of abnormal or psychotic thoughts: patient denies homicidal ideation, denies AV hallucinations, denies thought delusions Judgment: poor Insight: poor Orientation: x 3 Recent and remote memory: intact Attention span and concentration: fair Fund of knowledge: average Mood: depressed Affect: congruent with mood, depressed. DIAGNOSES: 1. Major Depressive Disorder, severe, recurrent 2. CARYN 3. R/O PTSD MEDICATIONS ON DISCHARGE: Aripiprazole (Aripiprazole) 5 Mg Tab, 5 MG PO QHS for mood, #7 Mirtazapine (Mirtazapine) 15 Mg Tab, 15 MG PO QHS for insomnia, #7 Nicotine (Nicotine Transdermal Syst) 21 Mg/24 Hr Dis, 1 PATCH TD DAILY for nicotine patch, #7 Sertraline HCl (Sertraline HCl) 100 Mg Tab, 200 MG PO QAM for depression, #14 Scheduled PRN Hydroxyzine HCl (Hydroxyzine HCl) 50 Mg Tab, 50 MG PO Q6HP PRN for ANXIETY/OPAL TATION, #28 PLAN/FOLLOWUP ARRANGEMENTS: [facility] [place] [place] in [place] The amount of time spent in the coordination of care for this patient was approximately 60 minutes. Vital Signs/I&Os Vital Signs Date Time Temp Pulse Resp B/P (MAP) Pulse Ox O2 Delivery O2 Flow Rate FiO2 08/16/18 06:10 97.9 74 18 139/70 (93) Medications Scheduled Aripiprazole (Aripiprazole) 5 Mg Tab, 5 MG PO QHS for mood, #7 Mirtazapine (Mirtazapine) 15 Mg Tab, 15 MG PO QHS for insomnia, #7 Nicotine (Nicotine Transdermal Syst) 21 Mg/24 Hr Dis, 1 PATCH TD DAILY for nicotine patch, #7 Sertraline HCl (Sertraline HCl) 100 Mg Tab, 200 MG PO QAM for depression, #14 Scheduled PRN Hydroxyzine HCl (Hydroxyzine HCl) 50 Mg Tab, 50 MG PO Q6HP PRN for ANXIETY/AGITATION, #28 Allergies Coded Allergies: No Known Allergies (Unverified , 08/06/18) EDUARDA PANDEY MD Aug 17, 2018 21:32
== END 2018-08-16 16:00 | DRG 885 ==
LOC: M ED 12:38 → M ED INP 17:00 → M PSY 17:31
PROVIDERS: ADMIT Psychiatry & Neurology Psychiatry; ATTEND Psychiatry & Neurology Psychiatry
DX: F33.2 Major depressive disorder, recurrent severe without psychotic features (principal); R45.851 Suicidal ideations; F41.1 Generalized anxiety disorder; F43.10 Post-traumatic stress disorder, unspecified; F17.200 Nicotine dependence, unspecified, uncomplicated

== ENCOUNTER 2018-09-21 21:28 | Inpatient (IN) | payer OTHER ==
[~2018-09-21] VITALS: Ht 170.2 cm; Wt 71.4 kg
[~2018-09-21 21:28] MED LIST changes: +ARIP1TAB6 PO; +HYDRO50TAB PO; +MIRT15TA3 PO; +NICO21PAT TD; +SERT-138 PO
[2018-09-21] MEDS ORDERED: TRAZ-160 PO (21:34)
[2018-09-21] MEDS ORDERED: WELLTAB40 PO (21:34)
[2018-09-21] MEDS ORDERED: NEUR300C PO (21:34)
[2018-09-21 23:20] LABS: HEMATOCRIT 44.4 % (42.0-52.0); HEMOGLOBIN 14.9 g/dl (13.5-17.5); MEAN CORPUSCULAR HEMOGLOBIN 27.9 pg (27.0-33.0); MEAN CORPUSCULAR HGB CONC 33.6 g/dl (32.0-36.5); MEAN CORPUSCULAR VOLUME 83.1 fl (80.0-96.0); PLATELET COUNT, AUTOMATED 234 10^3/uL (150-450); RED BLOOD COUNT 5.34 10^6/uL (4.30-6.10); WHITE BLOOD COUNT 7.3 10^3/uL (4.0-10.0)
[2018-09-21 23:28] LABS: APPEARANCE, URINE CLOUDY (CLEAR); BACTERIA, URINE AUTO NEGATIVE (NEGATIVE); BILIRUBIN, URINE AUTO NEGATIVE (NEGATIVE); BLOOD, URINE BLOOD 3+ (NEGATIVE); CALCIUM OXALATE CRYSTALS MODERATE; COLOR, URINE AMBER (YELLOW); GLUCOSE, URINE (UA) AUTO NEGATIVE (NEGATIVE); KETONE, URINE AUTO NEGATIVE (NEGATIVE); LEUKOCYTE ESTERASE, URINE AUTO NEGATIVE (NEGATIVE); MUCUS, URINE SMALL (NEGATIVE); NITRITE, URINE AUTO NEGATIVE (NEGATIVE); PROTEIN, URINE AUTO 2+ mg/dL (NEGATIVE); RBC, URINE AUTO TNTC /HPF (0-3); SPECIFIC GRAVITY URINE AUTO 1.028 (1.002-1.035); SQUAMOUS EPITHELIAL CELL UR AU 0 /HPF (0-6); UROBILINOGEN, URINE AUTO 0.2 mg/dL (0.0-2.0); WBC, URINE AUTO 2 /HPF (0-3)
[2018-09-21 23:43] LABS: AMPHETAMINES LEVEL URINE NEGATIVE (NEGATIVE); BARBITURATES URINE NEGATIVE (NEGATIVE); BENZODIAZEPINES URINE NEGATIVE (NEGATIVE); CANNABINOIDS URINE NEGATIVE (NEGATIVE); COCAINE METABOLITE URINE NEGATIVE (NEGATIVE); METHADONE URINE NEGATIVE (NEGATIVE); OPIATES URINE NEGATIVE (NEGATIVE); PHENCYCLIDINE URINE NEGATIVE (NEGATIVE)
[2018-09-21 23:56] LABS: ALBUMIN 4.6 GM/DL (3.2-5.2); ALT/SGPT 22 U/L (12-78); BILIRUBIN,DIRECT 0.1 MG/DL (0.0-0.2); BILIRUBIN,TOTAL 0.4 MG/DL (0.2-1.0); BLOOD UREA NITROGEN 7 MG/DL (7-18); CALCIUM LEVEL 8.6 MG/DL (8.5-10.1); CARBON DIOXIDE LEVEL 25 MEQ/L (21-32); CHLORIDE LEVEL 110 MEQ/L (98-107); CPK CREATINE PHOSPHOKINASE 152 U/L (39-308); CREATININE FOR GFR 0.86 MG/DL (0.70-1.30); ETHYL ALCOHOL (ETHANOL) < 0.003 % (0.000-0.010); GLUCOSE, FASTING 90 MG/DL (70-100); POTASSIUM SERUM 3.7 MEQ/L (3.5-5.1); SALICYLATE LEVEL < 1.7 MG/DL (5.0-30.0); SODIUM LEVEL 141 MEQ/L (136-145); TOTAL PROTEIN 7.9 GM/DL (6.4-8.2)
[2018-09-21 23:57] LABS: ACETAMINOPHEN LEVEL < 2.0 UG/ML (10.0-30.0)
[2018-09-22] MEDS ORDERED: MOM 30ML SUSPENSION UDC PO PRN (00:45)
[2018-09-22] MEDS ORDERED: MAALOX 30 ML SUSP *UDC PO PRN (00:45)
[2018-09-22] MEDS ORDERED: ACETAMINOPHEN TAB 650MG DOSE (2X325MG) PO PRN (00:45)
[2018-09-22 01:55] VITALS: BP 135/87
[2018-09-22 06:48] VITALS: BP 127/58
[2018-09-22] MEDS ORDERED: GABAPENTIN 300 MG CAP PO SCH (09:00)
[2018-09-22] MEDS ORDERED: NICOTINE 21MG/24HR 1 EA TRANSDERMAL TD SCH (09:00)
[2018-09-22] MEDS: buPROPion **XL** TABLET 150MG (WELLBUTRIN XL) PO SCH (09:22)
[2018-09-22] MEDS: GABAPENTIN 300 MG CAP PO SCH ×2 (09:23→21:26)
[2018-09-22 18:31] VITALS: BP 138/66
[2018-09-22] MEDS: NICOTINE POLACRILEX 2 MG GUM PO PRN (18:32)
--- NOTE | 2018-09-22 19:47 | CR.PDOC ---
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 Consultation is being requested for evaluation of patient's hematuria. The patient denies any associated dysuria/abdominal pain/flank pain/fevers/chills or sweats. He reports he did note is that his urine has been a little dark. He is tolerating oral intake well. Denies any previous problems with kidney or ureteral stones. Denies any injury/trauma. ALLERGIES: Sertraline causes tongue swelling Current Medications Acetaminophen (Tylenol Tab) 650 mg Q6HP PRN PO HEADACHE or DISCOMFORT; Start 09/22/18 at 00:45 Al Hydrox/Mg Hydrox/Simethicone (Mylanta) 30 ml Q4HP PRN PO HEARTBURN/INDIGESTION; Start 09/22/18 at 00:45 Bupropion HCl (Wellbutrin Xl) 300 mg DAILY PO Last administered on 09/22/18at 09:22; Start 09/22/18 at 09:00 Gabapentin (Neurontin) 300 mg BID PO Last administered on 09/22/18at 09:23; Start 09/22/18 at 09:00 Gabapentin (Neurontin) 300 mg TID PO ; Start 09/22/18 at 09:00; Stop 09/22/18 at 09:00; Status DC Home Med (Med Rec Complete!) ASDIRECTED XX ; Start 09/22/18 at 01:30; Stop 09/22/18 at 01:45; Status DC Magnesium Hydroxide (Milk Of Magnesia) 30 ml DAILYPRN PRN PO CONSTIPATION; Start 09/22/18 at 00:45 Nicotine (Nicoderm Cq 21mg) 1 patch DAILY TD ; Start 09/22/18 at 09:00; Status Cancel Nicotine (Nicorette) 4 mg Q2HP PRN PO NICOTINE WITHDRAWAL Last administered on 09/22/18at 18:32; Start 09/22/18 at 02:15 Trazodone HCl (Desyrel) 50 mg QHSP PRN PO INSOMNIA; Start 09/22/18 at 00:45 PAST MEDICAL HISTORY: Depression, suicidal ideation, hematuria, right hand cellulitis PAST SURGICAL HISTORY: None FAMILY HISTORY: Personally reviewedpatient denies any major medical problems in the family. SOCIAL HISTORY: Reports smoking half pack per day for 2-3 years. Denies any alcohol or drug use. REVIEW OF SYSTEMS: Negative for 10 systems except as noted under history of present illness PHYSICAL EXAMINATION: Vital Signs: Please see below GENERAL APPEARANCE: Sitting up in bed. No distress EYES: Pupils equal round reactive to light HENT: Oral mucous membranes moist RESPIRATORY: Clear to auscultation bilaterally. No wheeze. No crackles. CARDIOVASCULAR: S1, S2 heard, regular rate rhythm. No rubs or gallops. ABDOMEN: Soft, nontender. No guarding or rigidity EXTREMITIES: No edema. Bilateral pulses intact NEUROLOGICAL: Awake, alert, oriented 3. Moving all 4 extremities. No lateralizing deficit noted. Laboratory Tests: Please see below ASSESSMENT/PLAN: Hematuria: -Patient denies any abdominal pain or any previous problems with urinary tract stones -I will check abdominal x-ray as well as renal ultrasound -If there is no evidence of stone and no anatomic abnormality in the kidneys, I have discussed with patient regarding outpatient urology follow-up for consideration for cystoscopy/ureteroscopy and further evaluation and workup of the hematuria -No clinical evidence of UTI and patient denies trauma 2. Depression/suicidal ideation: -Management per psychiatry Thank you for the consultation. We will follow the patient with you. Vital Signs/I&O Vital Signs Date Time Temp Pulse Resp B/P (MAP) Pulse Ox O2 Delivery O2 Flow Rate FiO2 09/22/18 06:48 98.1 79 12 127/58 (81) 09/22/18 01:55 96 09/21/18 21:28 Room Air Laboratory Data Labs 24H Laboratory Tests 2 09/21/18 23:07: Nucleated Red Blood Cells % (auto) 0.0, Urine Appearance CLOUDYH, Urine Color EDWARD, Urine pH 5.0, Urine Specific [place] 1.028, Urine Protein 2+H, Urine Glucose (UA) NEGATIVE, Urine Ketones NEGATIVE, Urine Urobilinogen 0.2, Urine Bilirubin NEGATIVE, Urine Leukocyte Esterase NEGATIVE, Urine Blood 3+H, Urine Nitrite NEGATIVE, Urine WBC (Auto) 2, Urine RBC (Auto) TNTCH, Urine Hyaline Casts (Auto) 0, Urine Bacteria (Auto) NEGATIVE, Urine Squamous Epithelial Cells 0, Urine Calcium Oxalate Cryst (Auto) MODERATE, Urine Mucus (Auto) SMALL, Urine Yeast-Like Cells (Auto) SMALLH, Urine Sperm (Auto) , Anion Gap 6L, Calcium Level 8.6, Aspartate Amino Transf (AST/SGOT) 17, Alanine Aminotransferase (ALT/SGPT) 22, Alkaline Phosphatase 118H, Total Bilirubin 0.4, Direct Bilirubin 0.1, Total Creatine Kinase 152, Total Protein 7.9, Albumin 4.6, Albumin/Globulin Ratio 1.39, Thyroid Stimulating Hormone (TSH) 2.090, Salicylates Level < 1.7L, Urine Amphetamines Screen NEGATIVE, Urine Benzodiazepines Screen NEGATIVE, Urine Opiates Screen NEGATIVE, Urine Methadone Screen NEGATIVE, Acetaminophen Level < 2.0L, Urine Barbiturates Screen NEGATIVE, Urine Phencyclidine Screen NEGATIVE, Urine Cocaine Metabolite Screen NEGATIVE, Urine Cannabinoids Screen NEGATIVE, Ethyl Alcohol Level < 0.003 CBC/BMP Laboratory Tests 09/21/18 23:07 Red Blood Count 5.34, Mean Corpuscular Volume 83.1, Mean Corpuscular Hemoglobin 27.9, Mean Corpuscular Hemoglobin Concent 33.6, Red Cell Distribution Width 11.9 Allergies Coded Allergies: sertraline (Verified Allergy, Unknown, 09/21/18) Home Medications Scheduled Bupropion HCl (Wellbutrin Xl) 300 Mg Tab.er.24h, 300 MG PO DAILY, (Reported) Gabapentin (Neurontin) 300 Mg Capsule, 300 MG PO BID, (Reported) Trazodone HCl (Trazodone HCl) 50 Mg Tablet, 50 MG PO QPM, (Reported) DI INFANTE MD Sep 22, 2018 17:33
[2018-09-22] MEDS: traZODone 50 MG TAB PO PRN (21:26)
[2018-09-23 06:57] VITALS: BP 120/56
[2018-09-23] MEDS: buPROPion **XL** TABLET 150MG (WELLBUTRIN XL) PO SCH (08:13)
[2018-09-23] MEDS: GABAPENTIN 300 MG CAP PO SCH ×2 (08:13→23:01)
[2018-09-23] MEDS: NICOTINE POLACRILEX 2 MG GUM PO PRN ×4 (08:14→17:56)
--- NOTE | 2018-09-23 10:48 | REP ---
Renal ultrasound: The right kidney measures 11.3 x 4.8 x 5.5 cm. The left kidney measures 11.5 x 5.2 x 5.8 cm. The kidneys are normal size. There is no hydronephrosis. There are no renal calculi. There are no solid or cystic renal masses. Impression: Essentially negative bilateral renal ultrasound. Bladder: The bladder is moderately distended with 160 ml of fluid. There are no bladder wall masses or nodules. The prostate is normal size. Impression: Essentially negative renal and bladder ultrasound. Electronically Signed by Enrique Messina MD 09/23/2018 10:40 A
--- NOTE | 2018-09-23 11:38 | REP ---
KUB, TWO VIEWS: HISTORY: Hematuria. A small amount of air is present in the intestine. There are no air fluid levels or dilated loops of intestine. There is no pneumoperitoneum. A 5 mm calcification is present overlying the left kidney. This may represent nephrolithiasis. IMPRESSION: 1. Nonspecific bowel gas pattern. 2. There is a 5 mm calcification overlying the left kidney. This may represent nephrolithiasis. Electronically Signed by Ramu Weldon MD 09/23/2018 11:40 A
--- NOTE | 2018-09-23 11:40 | MHHPEPDOC ---
General Date Of Admission: Sep 21, 2018 Legal Status: 9.39 Chief Complaint "stress at work" History of Present Illness HISTORY OF THE PRESENT ILLNESS: Patient is a 18 -year-old , male, with a history of MDD and CARYN who presents with suicidal ideations. 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 [place] and was broken up with Girlfriend since long-term care. Per [facility] mental health evaluation in ED he reported he "wanted to kill myself again" by hanging to . He is pending possible article 15 and feels it is unjustified since he was not in correct mental state at the time and that deserves medboard. He states he has "off and on" only passive homicidal (would never act on it) thoughts towards PINKY. States he continues have suicidal thoughts and if he leaves the unit he could harm himself. Denies AVH/ashley/PTSD. Psychiatric Review of Systems Depression (2 or more weeks): depressed mood, anhedonia, insomnia/hypersomnia (multiple night time awakenings), feelings of worthlesness ("nobody cares about me"), decreased energy, difficulty concentrating, psychomotor changes (retardation), suicidal thoughts (active, plan to hang himself.) Ashley (4 or more days of): denies Psychosis: denies Anxiety: gen/non-specific anxiety (since highschool), situational anxiety (realted to work stress getting back into routine.), other (anxiety attacks) Anxiety/ 6 months or more of: restlessness, keyed up, easily fatigued, difficulty concentrating, irritability, sleep disturbance Past Psychiatric History Previous Psychiatric Diagnosis: MDD and CARYN. Previous Psychiatric Admissions: [facility] Aug 06 2018 for suicidal attempt, long- term [facility] (early Aug to September 2018) Suicide Attempts: 1x trying to hang self with shoe lace in hotel in [place] prior to admission in July, none since. Psychiatric Follow-up: [facility] Psychiatric medications: zoloft (angioedema, tongue swelling), wellbutrin 300 XL (well tolerated, increases anxiety), gabapentin 300 BID (doesn't help), trazodone 50 QHSP (helps with sleep) Past Medical History Medical Problems Denies Head Injury: No Seizures: No Hospitalizations: Yes Surgeries: Yes (bilateral ear tubes, wisdom tooth removal) Family Medical/Psychiatric HX Medical Problems HTN father Psychiatric Disorders: No Addiction: No Suicide Attemps/Completions: No Addiction History nicotine (1.5 PPD), alcohol (socailly, infrequently) Social History Childhood: Grew up in [place] with parents and 1 younger brother in home. Reports bullied in school Abuse/Trauma:Denies Current Living Situation: [place]. Education: high school Employment: [employer] Social Support: mother, father in [place] Legal: denies Marital: single, says RAMESH broke up with him before long-term treatment in [place] after last admission. Mental Status Examination General Appearance: well groomed, appears stated age, hospital scubs/clothing Build: average Demeanor: very figety Eye Contact: avoidant Activity: anxious Behavior: cooperative Speech: clear, slow, low in volume, non-spontaneous Mood: depressed, anxious, irritable Affect: constricted, anxious Thought Process: logical/linear, slow Thought Content (Delusions): other (suicidal ideation) Thought Content (Other): appropriate Thought Content (Aggressive): aggressive (assess) (no intent or plan), other Perception (Hallucinations): none reported Perception (Other): none reported Cognition (Impairment of): attention/concentration Cognition(Intelligence Est.): average Oriented: Awake, Alert, Oriented times three Insight: fair Judgment: Poor Diagnoses 1. Major Depression Disorder, recurrent, severe 2. Generalized anxiety disorder 3. Tobacco use disorder Assessment Patient is a 18 year old man who presents with suicidal ideation and plan to hang himself if discharged. Stressors are returning from long-term treatment back to and juan j overworked/stressed per patient. Has pending article 15, despite stating he was depressed and not in the right state of mind during accusation of going AWOL. He also has only limited support back home in [place] and broke up with his girlfriend in August. Currently endorses active SI with plan to hang himself, and fleeting passive HI towards PINKY due to current possible discharge situation. Agrees to medicine changes. Problem List Problems: (1) Suicidal ideation Status: Acute (2) Depression Status: Acute Initial Treatment Plan 1. Patient was admitted on a [9.39] status. 2. Complete history was obtained. 3. With patients permission, family will be contacted and database will be expanded. 4. Patients medication regimen will be reviewed and changed accordingly. 5. Patient will be provided with protected environment. 6. Patient will be treated with individual, group, and milieu therapies. 7. Patient will receive supportive psych-education. 8. Discharge planning will commence immediately. 9. Outpatient follow-up treatment will be strongly recommended. 10. The initial treatment plan will focus initially on: * Depression. * Risk for suicide, risk for homicide. * Substance abuse. ESTIMATED LENGTH OF STAY: 5-7 DAYS. TIME SPENT COUNSELING AND COORDINATING INITIAL CARE: 60 minutes. Vital Signs Vital Signs Date Time Temp Pulse Resp B/P (MAP) Pulse Ox O2 Delivery O2 Flow Rate FiO2 09/23/18 06:57 98.1 72 14 120/56 (77) 09/22/18 01:55 96 09/21/18 21:28 Room Air Medications Scheduled Bupropion HCl (Wellbutrin Xl) 300 Mg Tab.er.24h, 300 MG PO DAILY, (Reported) Gabapentin (Neurontin) 300 Mg Capsule, 300 MG PO BID, (Reported) Trazodone HCl (Trazodone HCl) 50 Mg Tablet, 50 MG PO QPM, (Reported) Allergies Coded Allergies: sertraline (Verified Allergy, Unknown, 09/21/18) ANA DISLA PGY-1 Sep 23, 2018 11:40
[2018-09-23 18:00] VITALS: BP 136/80
--- NOTE | 2018-09-23 20:00 | IPNPDOC ---
Subjective Date Seen The patient was seen on 09/23/18. Subjective Chief Complaint/HPI Patient is being evaluated by the medical service for hematuria Events since last encounter The patient denies any overnight problems with abdominal pain or flank pain. No dysuria. No fevers/chills or sweats. No nausea or vomiting. Tolerating oral intake. Objective Physical Examination General Exam: Positive: Alert, Cooperative Chest Exam: Positive: Clear to auscultation, Normal air movement Heart Exam: Positive: Rate Normal, Normal S1, Normal S2 Abdomen Exam: Positive: Soft, Other (nontender. No costovertebral angle tenderness) Assessment /Plan Assessment Hematuria: -Renal ultrasound was personally reviewedno evidence of obstruction or hydronephrosis or nephrolithiasis on the ultrasound -Abdominal x-ray shows a 5 mm calcification overlying left kidneymay represent nephrolithiasis -Advised patient regarding outpatient follow-up with urology and/or his primary care physician for further monitoring of the hematuria. Discussed with him that he may require outpatient cystoscopy as wellagain, reinforced the need for him to follow up with urology for the same. Patient expresses understanding of the same. -No further inpatient workup required at this time. Depression/suicidal ideation: -Management per psychiatry We will sign off. Please call with any questions. Plan/VTE VTE Prophylaxis Ordered?: No VTE Exclusion Mechanical Proph: Low Risk for VTE VTE Exclusion Pharmacological: At Low Risk for VTE VS, I&O, 24H, Fishbone Vital Signs/I&O Vital Signs Date Time Temp Pulse Resp B/P (MAP) Pulse Ox O2 Delivery O2 Flow Rate FiO2 09/23/18 18:00 99.1 98 14 136/80 (98) 96 09/21/18 21:28 Room Air DI INFANTE MD Sep 23, 2018 20:00
[2018-09-23] MEDS: traZODone 50 MG TAB PO PRN (23:29)
[2018-09-24 07:06] VITALS: BP 117/61
[2018-09-24] MEDS ORDERED: buPROPion **XL** TABLET 150MG (WELLBUTRIN XL) PO SCH (09:00)
[2018-09-24] MEDS: GABAPENTIN 300 MG CAP PO SCH ×3 (09:25→23:01)
[2018-09-24] MEDS: NICOTINE POLACRILEX 2 MG GUM PO PRN ×3 (09:25→20:48)
[2018-09-24] MEDS ORDERED: buPROPion **XL** TABLET 150MG (WELLBUTRIN XL) PO ONE (12:00)
[2018-09-24] MEDS ORDERED: GABAPENTIN 300 MG CAP PO ONE (12:00)
--- NOTE | 2018-09-24 16:08 | ECGEPIP ---
Stationary ECG Study [facility] Test Date: 2018-09-23 Pat Name: MARIA ELENA MUHAMMAD Department: Room: [place] [address] Gender: M Shake Feeder: DRE : 2000 Requested By: ANA DISAL PGY-1 Order Number: [id number] Reading MD: Rc Hoskins Measurements Intervals [place] Rate: 90 P: 66 MT: 152 QRS: 92 QRSD: 96 T: -4 QT: 324 QTc: 397 Interpretive Statements SINUS RHYTHM Probable Left ventricular hypertrophy by Alegre criteria. RIGHT AXIS DEVIATION NONSPECIFIC ST-T ABNORMALITY No significant change compared with 08/07/2018. Electronically Signed On 09-24-2018 16:07:57 EDT by Rc Hoskins
--- NOTE | 2018-09-24 17:39 | MHIPNPDOC ---
[facility] Progress Note Progress Note DATE OF SERVICE: 09/24/18 HISTORY: Patient is a 18 -year-old , male, with a history of MDD and CARYN who presents with suicidal ideations. 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 [place] and was broken up with Girlfriend since long-term care. Per [facility] mental health evaluation in ED he reported he "wanted to kill myself again" by hanging to CQ. He is pending possible article 15 and feels it is unjustified since he was not in correct mental state at the time and that deserves medboard. He states he has "off and on" only passive homicidal (would never act on it) thoughts towards PINKY. States he continues have suicidal thoughts and if he leaves the unit he could harm himself. Denies AVH/ashley/PTSD. VITAL SIGNS: See below. NEW TEST RESULTS: See below CURRENT MEDICATIONS: See below. MENTAL STATUS EXAMINATION: Patient is a 18-year old male, who is alert, cooperative, dressed in hospital clothes. Speech: Is normal rate/rhythm/tone, low volume, fluent, spontaneous, Language skills are good Thought processes including: logical, linear Thought content: Depressed/anxious thoughts, cognitive distortions. Abstract reasoning, and computation: fair. Description of associations: good Description of abnormal or psychotic thoughts: Denies AV hallucinations, denies thought delusions, admits to have SI q3-4 hours, denies homicidal ideation Judgment: poor. Insight: poor. Orientation: x 4. Recent and remote memory: intact. Attention span and concentration: fair. Language: normal. Fund of knowledge: average. Mood: depressed. Affect: congruent with mood. DIAGNOSES: 1. Major Depression Disorder, recurrent, severe 2. Generalized anxiety disorder 3. Tobacco use disorder ASSESSMENT: patient is very depressed, his presentation is almost identical to his first admission over here. He says bronze plater helped him "a little". he used to go [facility] and he thinks groups help him. The patient was on 300 mgs of Wellbutrin prior to his admission this time, so, this gag writer increased his dose to 300 mgs and increased Gabapentin to 300 mgs PO TID because he was on that dose before and he felt it helped him more than 200 mgs PO BID. the patient says that he will be med boarded [facility] [employer] and this might take several months. he, once again, reports that coming back from the [facility] treatment program to [place] has affected him because now he is dealing with work related stress once again and this gag writer tells him, he will have to work on that because he will have to go back to work, so, it would really help him to keep attending groups. MANAGEMENT PLAN: Increase Gabapentin to 300 mgs PO TID ad Wellbutrin to 300 mgs PO QAM TIME SPENT: 20 minutes. Vital Signs Vital Signs Date Time Temp Pulse Resp B/P (MAP) Pulse Ox O2 Delivery O2 Flow Rate FiO2 09/24/18 07:06 97.6 72 14 117/61 (79) 09/23/18 18:00 96 09/21/18 21:28 Room Air Current Medications Current Medications Acetaminophen (Tylenol Tab) 650 mg Q6HP PRN PO HEADACHE or DISCOMFORT; Start 09/22/18 at 00:45 Al Hydrox/Mg Hydrox/Simethicone (Mylanta) 30 ml Q4HP PRN PO HEARTBURN/INDIGESTION; Start 09/22/18 at 00:45 Bupropion HCl (Wellbutrin Xl) 150 mg DAILY PO Last administered on 09/24/18at 09:25; Start 09/24/18 at 09:00; Stop 09/24/18 at 11:55; Status DC Bupropion HCl (Wellbutrin Xl) 300 mg DAILY PO Last administered on 09/23/18at 08:13; Start 09/22/18 at 09:00; Stop 09/23/18 at 11:41; Status DC Bupropion HCl (Wellbutrin Xl) 300 mg DAILY PO ; Start 09/25/18 at 09:00 Gabapentin (Neurontin) 300 mg BID PO Last administered on 09/24/18at 09:25; Start 09/22/18 at 09:00; Stop 09/24/18 at 12:00; Status DC Gabapentin (Neurontin) 300 mg TID PO ; Start 09/22/18 at 09:00; Stop 09/22/18 at 09:00; Status DC Gabapentin (Neurontin) 300 mg TID PO Last administered on 09/24/18at 15:18; Start 09/24/18 at 16:00 Home Med (Med Rec Complete!) ASDIRECTED XX ; Start 09/22/18 at 01:30; Stop 09/22/18 at 01:45; Status DC [place] Carbonate ([place] Carbonate) 150 mg QHS PO ; Start 09/24/18 at 21:00 Magnesium Hydroxide (Milk Of Magnesia) 30 ml DAILYPRN PRN PO CONSTIPATION; Start 09/22/18 at 00:45 Nicotine (Nicoderm Cq 21mg) 1 patch DAILY TD ; Start 09/22/18 at 09:00; Status Cancel Nicotine (Nicorette) 4 mg Q2HP PRN PO NICOTINE WITHDRAWAL Last administered on 09/24/18at 15:19; Start 09/22/18 at 02:15 Trazodone HCl (Desyrel) 50 mg QHSP PRN PO INSOMNIA Last administered on 09/23/18at 23:29; Start 09/22/18 at 00:45 Allergies Coded Allergies: aripiprazole (Verified Allergy, Severe, angioedema, 09/23/18) Reports had tongue swelling while taking abilify and zoloft, unclear which medication contributed since both were discontinued. sertraline (Verified Allergy, Severe, angioedema, 09/23/18) Reports had tongue swelling while taking abilify and zoloft, unclear which medication contributed since both were discontinued. EDUARDA PANDEY MD Sep 24, 2018 17:38
[2018-09-24 18:08] VITALS: BP 142/65
[2018-09-24] MEDS: LITHIUM CARBONATE 150 MG CAP PO SCH (23:02)
[2018-09-24] MEDS: traZODone 50 MG TAB PO PRN (23:02)
[2018-09-25 00:48] LABS: AMORPHOUS SEDIMENT MODERATE (NEGATIVE); APPEARANCE, URINE CLOUDY (CLEAR); BACTERIA, URINE AUTO NEGATIVE (NEGATIVE); BILIRUBIN, URINE AUTO NEGATIVE (NEGATIVE); BLOOD, URINE BLOOD 3+ (NEGATIVE); COLOR, URINE YELLOW (YELLOW); GLUCOSE, URINE (UA) AUTO NEGATIVE (NEGATIVE); KETONE, URINE AUTO NEGATIVE (NEGATIVE); LEUKOCYTE ESTERASE, URINE AUTO NEGATIVE (NEGATIVE); MUCUS, URINE SMALL (NEGATIVE); NITRITE, URINE AUTO NEGATIVE (NEGATIVE); PROTEIN, URINE AUTO NEGATIVE (NEGATIVE); RBC, URINE AUTO 131 /HPF (0-3); SPECIFIC GRAVITY URINE AUTO 1.023 (1.002-1.035); SQUAMOUS EPITHELIAL CELL UR AU 0 /HPF (0-6); WBC, URINE AUTO 1 /HPF (0-3)
[2018-09-25 00:51] LABS: MYOGLOBIN SCREEN, URINE POSITIVE (NEGATIVE)
[2018-09-25 07:00] VITALS: BP 148/64
[2018-09-25] MEDS: buPROPion **XL** TABLET 150MG (WELLBUTRIN XL) PO SCH (08:44)
[2018-09-25] MEDS: GABAPENTIN 300 MG CAP PO SCH ×2 (08:44→15:47)
[2018-09-25] MEDS: NICOTINE POLACRILEX 2 MG GUM PO PRN ×2 (08:46→14:58)
--- NOTE | 2018-09-25 12:33 | MHIPNPDOC ---
[facility] Progress Note Progress Note DATE OF SERVICE: 09/25/18 HISTORY: Patient is a 18 -year-old , male, with a history of MDD and CARYN who presents with suicidal ideations. 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 [place] and was broken up with Girlfriend since long-term care. Per [facility] mental health evaluation in ED he reported he "wanted to kill myself again" by hanging to CQ. He is pending possible article 15 and feels it is unjustified since he was not in correct mental state at the time and that deserves medboard. He states he has "off and on" only passive homicidal (would never act on it) thoughts towards PINKY. States he continues have suicidal thoughts and if he leaves the unit he could harm himself. Denies AVH/ashley/PTSD. VITAL SIGNS: See below. NEW TEST RESULTS: See below CURRENT MEDICATIONS: See below. MENTAL STATUS EXAMINATION: Patient is a 18-year old male, who is alert, cooperative, dressed in personal clothes Speech: Is normal rate/rhythm/tone, low volume, fluent, spontaneous, Language skills are good Thought processes including: logical, linear Thought content: Depressed/anxious thoughts, cognitive distortions. Abstract reasoning, and computation: fair. Description of associations: good Description of abnormal or psychotic thoughts: Denies AV hallucinations, denies thought delusions, admits to have SI q3-4 hours, denies homicidal ideation Judgment: poor. Insight: poor. Orientation: x 4. Recent and remote memory: intact. Attention span and concentration: fair. Language: normal. Fund of knowledge: average. Mood: depressed. Affect: congruent with mood. DIAGNOSES: 1. Major Depression Disorder, recurrent, severe 2. Generalized anxiety disorder 3. Tobacco use disorder ASSESSMENT: Patient's mental status has not changed from yesterday. this property underwriter has contacted nephrology for Dr. Garrido to assess the patient who still has blood in urine. He says thant when he was in [place] he was injured with the volley ball on his right flank, it was painful and a couple of days later he started urinating blood, they gave him an antibiotic, probably Cipro (he is not sure), then, they stopped it and the bleeding returned. His last urinalysis shows REBC of 130 and is positive for myoglobin too. It is better than the previous one. Pending Nephrology consult. MANAGEMENT PLAN: Increase Gabapentin to 300 mgs PO TID ad Wellbutrin to 300 mgs PO QAM TIME SPENT: 20 minutes. Vital Signs Vital Signs Date Time Temp Pulse Resp B/P (MAP) Pulse Ox O2 Delivery O2 Flow Rate FiO2 09/25/18 07:00 98.7 65 14 148/64 (92) 09/23/18 18:00 96 09/21/18 21:28 Room Air Laboratory Data 24H Labs Laboratory Tests 2 09/24/18 23:59: Urine Appearance CLOUDYH, Urine Color YELLOW, Urine pH 6.0, Urine Specific [place] 1.023, Urine Protein NEGATIVE, Urine Glucose (UA) NEGATIVE, Urine Ketone s NEGATIVE, Urine Urobilinogen 2.0H, Urine Bilirubin NEGATIVE, Urine Leukocyte Esterase NEGATIVE, Urine Blood 3+H, Urine Nitrite NEGATIVE, Urine WBC (Auto) 1, Urine RBC (Auto) 131H, Urine Hyaline Casts (Auto) 0, Urine Bacteria (Auto) NEGATIVE, Urine Squamous Epithelial Cells 0, Urine Amorphous Sediment MODERATEH, Urine Mucus (Auto) SMALL, Urine Sperm (Auto) , Urine Myoglobin POSITIVE Current Medications Current Medications Acetaminophen (Tylenol Tab) 650 mg Q6HP PRN PO HEADACHE or DISCOMFORT; Start 09/22/18 at 00:45 Al Hydrox/Mg Hydrox/Simethicone (Mylanta) 30 ml Q4HP PRN PO HEARTBURN/IN DIGESTION; Start 09/22/18 at 00:45 Bupropion HCl (Wellbutrin Xl) 150 mg DAILY PO Last administered on 09/24/18at 09:25; Start 09/24/18 at 09:00; Stop 09/24/18 at 11:55; Status DC Bupropion HCl (Wellbutrin Xl) 300 mg DAILY PO Last administered on 09/23/18at 08:13; Start 09/22/18 at 09:00; Stop 09/23/18 at 11:41; Status DC Bupropion HCl (Wellbutrin Xl) 300 mg DAILY PO Last administered on 09/25/18at 08:44; Start 09/25/18 at 09:00 Gabapentin (Neurontin) 300 mg BID PO Last administered on 09/24/18 09:25; S tart 09/22/18 at 09:00; Stop 09/24/18 at 12:00; Status DC Gabapentin (Neurontin) 300 mg TID PO ; Start 09/22/18 at 09:00; Stop 09/22/18 at 09:00; Status DC Gabapentin (Neurontin) 300 mg TID PO Last administered on 09/25/18at 08:44; Start 09/24/18 at 16:00 Home Med (Med Rec Complete!) ASDIRECTED XX ; Start 09/22/18 at 01:30; Stop 09/22/18 at 01:45; Status DC [place] Carbonate ([place] Carbonate) 150 mg QHS PO Last administered on 09/24/18at 23:02; Start 09/24/18 at 21:00 Magnesium Hydroxide (Milk Of Magnesia) 30 ml DAILYPRN PRN PO CONSTIPATION; Start 09/22/18 at 00:45 Nicotine (Nicoderm Cq 21mg) 1 patch DAILY TD ; Start 09/22/18 at 09:00; Status Cancel Nicotine (Nicorette) 4 mg Q2HP PRN PO NICOTINE WITHDRAWAL Last administered on 09/25/18at 08:46; Start 09/22/18 at 02:15 Trazodone HCl (Desyrel) 50 mg QHSP PRN PO INSOMNIA Last administered on 09/24/18at 23:02; Start 09/22/18 at 00:45 Allergies Coded Allergies: aripiprazole (Verified Allergy, Severe, angioedema, 09/23/18) Reports had tongue swelling while taking abilify and zoloft, unclear which medication contributed since both were discontinued. sertraline (Verified Allergy, Severe, angioedema, 09/23/18) Reports had tongue swelling while taking abilify and zoloft, unclear which medication contributed since both were discontinued. EDUARDA PANDEY MD Sep 25, 2018 12:04
[2018-09-25 18:07] VITALS: BP 127/73
[2018-09-26] MEDS: LITHIUM CARBONATE 150 MG CAP PO SCH ×2 (00:06→21:20)
[2018-09-26] MEDS: GABAPENTIN 300 MG CAP PO SCH ×4 (00:06→21:19)
[2018-09-26] MEDS: traZODone 50 MG TAB PO PRN (00:06)
[2018-09-26 07:10] VITALS: BP 137/67
[2018-09-26] MEDS: NICOTINE POLACRILEX 2 MG GUM PO PRN (08:34)
[2018-09-26] MEDS: buPROPion **XL** TABLET 150MG (WELLBUTRIN XL) PO SCH (08:34)
[2018-09-26 18:00] VITALS: BP 142/82
[2018-09-27] MEDS: traZODone 50 MG TAB PO PRN (00:52)
[2018-09-27 06:34] VITALS: BP 145/69
[2018-09-27] MEDS: buPROPion **XL** TABLET 150MG (WELLBUTRIN XL) PO SCH (08:34)
[2018-09-27] MEDS: GABAPENTIN 300 MG CAP PO SCH ×3 (08:34→21:15)
[2018-09-27] MEDS: NICOTINE POLACRILEX 2 MG GUM PO PRN ×3 (08:34→21:15)
[2018-09-27 18:00] VITALS: BP 140/67
[2018-09-27] MEDS: LITHIUM CARBONATE 150 MG CAP PO SCH (21:15)
[2018-09-27 22:20] LABS: AMORPHOUS SEDIMENT SMALL (NEGATIVE); APPEARANCE, URINE CLOUDY (CLEAR); BACTERIA, URINE AUTO NEGATIVE (NEGATIVE); BILIRUBIN, URINE AUTO NEGATIVE (NEGATIVE); BLOOD, URINE BLOOD 3+ (NEGATIVE); COLOR, URINE YELLOW (YELLOW); GLUCOSE, URINE (UA) AUTO 1+ mg/dL (NEGATIVE); KETONE, URINE AUTO NEGATIVE (NEGATIVE); LEUKOCYTE ESTERASE, URINE AUTO NEGATIVE (NEGATIVE); MUCUS, URINE SMALL (NEGATIVE); NITRITE, URINE AUTO NEGATIVE (NEGATIVE); PROTEIN, URINE AUTO NEGATIVE (NEGATIVE); RBC, URINE AUTO TNTC /HPF (0-3); SPECIFIC GRAVITY URINE AUTO 1.018 (1.002-1.035); SQUAMOUS EPITHELIAL CELL UR AU 0 /HPF (0-6); UROBILINOGEN, URINE AUTO 0.2 mg/dL (0.0-2.0); WBC, URINE AUTO 23 /HPF (0-3)
[2018-09-28 06:36] VITALS: BP 121/56
[2018-09-28] MEDS: GABAPENTIN 300 MG CAP PO SCH ×3 (08:06→23:05)
[2018-09-28] MEDS: buPROPion **XL** TABLET 150MG (WELLBUTRIN XL) PO SCH (08:06)
[2018-09-28] MEDS: NICOTINE POLACRILEX 2 MG GUM PO PRN ×4 (08:07→23:06)
--- NOTE | 2018-09-28 12:27 | MHIPNPDOC ---
[facility] Progress Note Progress Note DATE OF SERVICE: 09/28/18 HISTORY: Patient is a 18 -year-old , male, with a history of MDD and CARYN who presents with suicidal ideations. 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 Says [place] and was broken up with Girlfriend since long-term care. Per [facility] mental health evaluation in ED he reported he "wanted to kill myself again" by hanging to CQ. He is pending possible article 15 and feels it is unjustified since he was not in correct mental state at the time and that deserves medboard. He states he has "off and on" only passive homicidal (would never act on it) thoughts towards PINKY. States he continues have suicidal thoughts and if he leaves the unit he could harm himself. Denies AVH/ashley/PTSD. VITAL SIGNS: See below. NEW TEST RESULTS: See below CURRENT MEDICATIONS: See below. MENTAL STATUS EXAMINATION: Patient is a 18-year old male, who is alert, cooperative, dressed in personal clothes Speech: Is normal rate/rhythm/tone, low volume, fluent, spontaneous, Language skills are good Thought processes including: logical, linear Thought content: Depressed/anxious thoughts, cognitive distortions. Abstract reasoning, and computation: fair. Description of associations: good Description of abnormal or psychotic thoughts: Denies AV hallucinations, denies thought delusions, admits passive suicidal ideation that has decreased in intensity and frequency, denies homicidal ideation Judgment: poor. Insight: poor. Orientation: x 4. Recent and remote memory: intact. Attention span and concentration: fair. Language: normal. Fund of knowledge: average. Mood: anxious/depressed. Affect: congruent with mood. DIAGNOSES: 1. Major Depression Disorder, recurrent, severe 2. Generalized anxiety disorder 3. Tobacco use disorder ASSESSMENT: Last Friday, Dr. Garrido called and said that the consult should be addressed to Urology even when he was injured in his right flank when he was in [place]. when I tried to contact Urology on Friday it was already late. Ordered a urinalysis for Friday and it was one until Friday. This new urinalysis shows once again RBC TNTC. I contacted the Hospitalist today for them to come and see him and spoke with Dr. Meza who tld me he was going to send someone to see him. Left a message at the Urology office and received the phone call from the Urologist who told me to get a new CBC and a basic metabolic panel. Expectint them to come and see the patient, he is not going to be discharged today to to [place], he is being discharged tomorrow after he is evaluated by hospitalist and urologist. the patient is anxious because he wanted to go back to today but he understands it is for his own good to stay in here. MANAGEMENT PLAN: Will continue with the same treatment plan TIME SPENT: 20 minutes. Vital Signs Vital Signs Date Time Temp Pulse Resp B/P (MAP) Pulse Ox O2 Delivery O2 Flow Rate FiO2 09/28/18 06:36 97.8 64 14 121/56 (77) 09/23/18 18:00 96 Laboratory Data 24H Labs Laboratory Tests 2 09/27/18 22:00: Urine Appearance CLOUDYH, Urine Color YELLOW, Urine pH 6.0, Urine Specific [place] 1.018, Urine Protein NEGATIVE, Urine Glucose (UA) 1+H, Urine Ketones NEGATIVE, Urine Urobilinogen 0.2, Urine Bilirubin NEGATIVE, Urine Leukocyte Esterase NEGATIVE, Urine Blood 3+H, Urine Nitrite NEGATIVE, Urine WBC (Auto) 23H, Urine RBC (Auto) TNTCH, Urine Hyaline Casts (Auto) 0, Urine Bacteria (Auto) NEGATIVE, Urine Squamous Epithelial Cells 0, Urine Amorphous Sediment SMALLH, Urine Mucus (Auto) SMALL, Urine Sperm (Auto) Current Medications Current Medications Acetaminophen (Tylenol Tab) 650 mg Q6HP PRN PO HEADACHE or DISCOMFORT Last administered on 09/27/18at 21:16; Start 09/22/18 at 00:45 Al Hydrox/Mg Hydrox/Simethicone (Mylanta) 30 ml Q4HP PRN PO HEARTBURN/INDIGESTION; Start 09/22/18 at 00:45 Bupropion HCl (Wellbutrin Xl) 150 mg DAILY PO Last administered on 09/24/18at 09:25; Start 09/24/18 at 09:00; Stop 09/24/18 at 11:55; Status DC Bupropion HCl (Wellbutrin Xl) 300 mg DAILY PO Last administered on 09/23/18at 08:13; Start 09/22/18 at 09:00; Stop 09/23/18 at 11:41; Status DC Bupropion HCl (Wellbutrin Xl) 300 mg DAILY PO Last administered on 09/28/18 08:06; Start 09/25/18 at 09:00 Gabapentin (Neurontin) 300 mg BID PO Last administered on 09/24/18at 09:25; Start 09/22/18 at 09:00; Stop 09/24/18 at 12:00; Status DC Gabapentin (Neurontin) 300 mg TID PO ; Start 09/22/18 at 09:00; Stop 09/22/18 at 09:00; Status DC Gabapentin (Neurontin) 300 mg TID PO Last administered on 09/28/18at 08:06; Start 09/24/18 at 16:00 Home Med (Med Rec Complete!) ASDIRECTED XX ; Start 09/22/18 at 01:30; Stop 09/22/18 at 01:45; Status DC [place] Carbonate ([place] Carbonate) 150 mg QHS PO Last administered on 09/27/18at 21:15; Start 09/24/18 at 21:00 Magnesium Hydroxide (Milk Of Magnesia) 30 ml DAILYPRN PRN PO CONSTIPATION; Start 09/22/18 at 00:45 Nicotine (Nicoderm Cq 21mg) 1 patch DAILY TD ; Start 09/22/18 at 09:00; Status Cancel Nicotine (Nicorette) 4 mg Q2HP PRN PO NICOTINE WITHDRAWAL Last administered on 09/28/18at 08:07; Start 09/22/18 at 02:15 Trazodone HCl (Desyrel) 50 mg QHSP PRN PO INSOMNIA Last administered on 09/27/18at 00:52; Start 09/22/18 at 00:45 Allergies Coded Allergies: aripiprazole (Verified Allergy, Severe, angioedema, 09/23/18) Reports had tongue swelling while taking abilify and zoloft, unclear which medication contributed since both were discontinued. sertraline (Verified Allergy, Severe, angioedema, 09/23/18) Reports had tongue swelling while taking abilify and zoloft, unclear which medication contributed since both were discontinued. EDUARDA PANDEY MD Sep 28, 2018 12:27
[2018-09-28 12:59] LABS: BASO % 0.8 % (0.0-1.0); EOS # 0.1 10^3/uL (0.0-0.50); HEMATOCRIT 44.7 % (42.0-52.0); HEMOGLOBIN 15.2 g/dl (13.5-17.5); LYMPH # 1.4 10^3/uL (1.5-6.5); MEAN CORPUSCULAR HEMOGLOBIN 28.7 pg (27.0-33.0); MEAN CORPUSCULAR VOLUME 84.3 fl (80.0-96.0); MONO # 0.3 10^3/uL (0.0-0.8); MONO % 6.7 % (0.0-5.0); NEUTROPHILS % 61.3 % (36.0-66.0); PLATELET COUNT, AUTOMATED 249 10^3/uL (150-450); WHITE BLOOD COUNT 4.9 10^3/uL (4.0-10.0)
[2018-09-28 13:22] LABS: BLOOD UREA NITROGEN 7 MG/DL (7-18); CARBON DIOXIDE LEVEL 28 MEQ/L (21-32); CHLORIDE LEVEL 109 MEQ/L (98-107); CREATININE FOR GFR 0.86 MG/DL (0.70-1.30); GLUCOSE, FASTING 92 MG/DL (70-100); POTASSIUM SERUM 4.3 MEQ/L (3.5-5.1); SODIUM LEVEL 140 MEQ/L (136-145)
[2018-09-28] MEDS ORDERED: ISOVUE-370 76% 100ML VIAL (Q9967) As Ordered ONE (13:57)
--- NOTE | 2018-09-28 16:23 | REP ---
CT abdomen and pelvis without and with IV contrast: CT urography. History: Hematuria. CT urogram. Urinary tract sonography from September 23, [address] contrast dose: 100 ml of intravenous Isovue [address] findings: Digital preliminary campaign manager radiograph is unremarkable. The lung bases are clear on axial CT images. The liver and the spleen are normal in size homogeneous in texture on pre and postcontrast images. The gallbladder shows no abnormality. No adrenal lesion is seen. No pancreatic abnormality observed. There is a intrarenal calculus in the left kidney upper pole collecting system which measures 6 mm in greatest diameter. There is no evidence of hydronephrosis. No other urinary tract calculus is seen. No bladder calculus is observed. Seminal vesicles and prostate are unremarkable. No renal mass is seen. Delayed post acquisition images show no filling defect in the collecting system on either side. The ureters describe a normal course to the urinary bladder. There is no visible bladder mass. No abdominal wall defect is seen. Small and large intestinal bowel loops are normal in the abdomen and pelvis. Impression: There is a 6 mm intrarenal calculus in the upper pole collecting system of the left kidney. Otherwise negative CT urography. Electronically Signed by Luis De La Torre MD 09/28/2018 04:54 P
[2018-09-28 18:09] VITALS: BP 141/82
[2018-09-28] MEDS: LITHIUM CARBONATE 150 MG CAP PO SCH (21:00)
[2018-09-29 06:29] VITALS: BP 139/83
--- NOTE | 2018-09-29 08:33 | CR ---
DATE OF CONSULTATION: 09/28/2018 CHIEF COMPLAINT: Persistent microhematuria. HISTORY OF PRESENT ILLNESS: Mr. Devi is a 18-year-old male who has been admitted to the inpatient psychiatric unit with depression and other psychiatric ailments, including suicidal tendencies. He was playing basketball and he was hit in the left flank by the basketball and after that he noticed that there was some blood in his urine. Initially, it was all blood but slowly the blood had disappeared, but he was having persistent microhematuria on microscopy. He denies any pain, discomfort, burning with micturition, dysuria, gross hematuria, stone disease or genitourinary surgery in the past. PAST MEDICAL HISTORY: Negative for diabetes, hypertension, chest pain, or any major surgical issues. He does have some significant psychiatric history. MEDICATIONS: Psychiatric medications. PHYSICAL EXAMINATION : He is alert, awake, oriented times three. HEENT: Normal. NECK: Soft, supple, nontender. CHEST: Normal. LUNGS: Clear. ABDOMEN: Soft, nondistended, nontender. No flank tenderness was elicited. He has no suprapubic tenderness. GENITOURINARY: Penis is circumcised with no lesions. Both testicles are descended. EXTREMITIES: He moves all four extremities. NEUROLOGIC: There is no focal neurological deficit. LABORATORIES: Reviewed. White count is 4.9 with a hemoglobin of 15.2 and hematocrit of 44.7. His basic metabolic panel shows sodium of 140, potassium 4.3, chloride 109, bicarbonate of 28, BUN 7, creatinine 0.86. He had a CT scan done with IV contrast, which shows normal looking outline of both the kidneys with no evidence of any injury to the kidney. There was a 6 mm stone in the left renal pelvis but no hydronephrosis. Bladder and ureters were normal. IMPRESSION: The patient has left asymptomatic 6 mm renal pelvic stone with no hydronephrosis. PLAN: He will require Extracorporeal shock wave lithotripsy (ESWL); however, since this is an incidental finding, there is no emergency or urgency to the procedure, and he should follow in urology clinic and there is no contraindication for discharging him as he has a stable hemoglobin, hemodynamically stable and there is no evidence of any renal laceration or pathology after the basketball hit him in the back.
[2018-09-29] MEDS: buPROPion **XL** TABLET 150MG (WELLBUTRIN XL) PO SCH (09:05)
[2018-09-29] MEDS: GABAPENTIN 300 MG CAP PO SCH (09:05)
[2018-09-29] MEDS: NICOTINE POLACRILEX 2 MG GUM PO PRN (09:05)
[2018-09-29] MEDS ORDERED: WELLTAB40 PO (10:19)
[2018-09-29] MEDS ORDERED: NEUR300C PO (10:19)
[2018-09-29] MEDS ORDERED: NICO2GUM PO (10:19)
[2018-09-29] MEDS ORDERED: TRAZ-160 PO (10:19)
--- NOTE | 2018-09-29 13:38 | MHDSPDOC ---
[facility] Discharge Summary Discharge Summary DATE OF ADMISSION: Sep 22, 2018 at 00:43 DATE OF DISCHARGE: Sep 29, 2018 at 11:43 DISCHARGE DIAGNOSES: 1. Major Depressive Disorder, recurrent 2. Generalized anxiety disorder 3. Tobacco use disorder REASON FOR ADMISSION: As per Dr. Weinstein: " Patient is a 18 -year-old , male, with a history of MDD and CARYN who presents with suicidal ideations. 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 Says [place] and was broken up with Girlfriend since long-term care. Per [facility] mental health evaluation in ED he reported he "wanted to kill myself again" by hanging to . He is pending possible article 15 and feels it is unjustified since he was not in correct mental state at the time and that deserves medboard. He states he has "off and on" only passive homicidal (would never act on it) thoughts towards PINKY. States he continues have suicidal thoughts and if he leaves the unit he could harm himself. Denies AVH/ashley/PTSD." CONSULTANTS INVOLVED: Dr. 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 when I spoke with him he told me that the program had helped him "a little", which was interesting because the program is intenive, they do groups all day and they receive individual therapy too. 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 He went to [place] and being at a hotel he tried doing this but he failed. He was admitted to [facility] but he was not improving despite medication adjustments and was sent to senior living treatment in [place]. He came back and he was complaining of depression and suicidal thoughts. when he came to the Unit he was urinating blood and then his urine cleared up a little, then it became bloody again. His urinalysis showed RBD TNTC on the first urine test, then the Red Blood Cells were 130 on the sencond urinalysis and on the third one it was TNTC too. I contacted the Hospitalist and the Urologist ( Dr. Torres and Dr. Sim) and Dr. Sim recommended an abcominal/plevic CT scan with contrast besides a CBC and basic metabolic profile. His creatinine was within normal limits and his according to his CBC, he was not anemic, his hemoglobin and hematocrit were within normal limits. His CT showed a 6mm stone in his left kidney and Dr. Sim recommended for him to come back to the Outpatient clinic for Urology in two weeks. The patient was irritable yesterday because he was still at [facility] and this writer editor told him we were waiting for him to be evaluated for hematuria, that this was a concern but he was not very insightful about this problem. He mentioned that while he was in [place] he was injured while playing volleyball on his Right flank and soon after he had developed hematuria, he had been treated with antibiotics and the hematuria had subsided. He said that he couldn't remember the name of the antibiotic but he remembered he had taken it for 4 days. The patient attended some groups but he was not invested on working on his depression, he had assumed the sick role, the learned helplessness., but this was the presentation with staff, because with peers, especially with female patients he was more outgoing, more sociable. He joked, socialized, played cards, [place] at [facility] while he joked with peers. He had passive suicidal thoughts, decreased in frequency and intensity, he didn't have plan or intent and he could contract for safety, he was not homicidal and not psychotic at the time of his discharge. HOSPITAL COURSE: As above. DISCHARGE ASSESSMENT: patient was not homicidal, had said he had passive suicidal thoughts (always in the back of his head but decreased in intensity and frequency), he could contract for safety (for not acting on his suicidal ideation---they were passive, not active and he didn't have a plan), and he did not endorse psychotic symptoms at the time of his discharge. He was future orientated, he wanted to go back to the [employer] and make the best of it before he gets from it. He denied medication side effects. MENTAL STATUS EXAMINATION ON DISCHARGE: Patient is a 18-year old male, who is alert, cooperative, dressed in personal clothes Speech: Is normal rate/rhythm/tone, low volume, fluent, spontaneous, Language skills are good Thought processes including: logical, linear Thought content: Depressed/anxious thoughts, cognitive distortions. Abstract reasoning, and computation: fair. Description of associations: good Description of abnormal or psychotic thoughts: Denies AV hallucinations, denies thought delusions, admits passive suicidal ideation that has decreased in intensity and frequency, denies homicidal ideation Judgment: poor. Insight: poor. Orientation: x 4. Recent and remote memory: intact. Attention span and concentration: fair. Language: normal. Fund of knowledge: average. Mood: anxious/depressed. Affect: congruent with mood. MEDICATIONS ON DISCHARGE: Scheduled Bupropion HCl (Wellbutrin Xl) 300 Mg Tab.er.24h, 300 MG PO DAILY for depression/anxiety, #7 Gabapentin (Neurontin) 300 Mg Capsule, 300 MG PO BID for anxiety, #14 Trazodone HCl (Trazodone HCl) 50 Mg Tablet, 50 MG PO QPM for insomnia, #7 Scheduled PRN Nicotine Polacrilex (Nicotine Gum) 2 Mg Gum, 4 MG PO Q2HP PRN for NICOTINE WITHDRAWAL, #84 PLAN/FOLLOWUP ARRANGEMENTS: Follow Up Care Education Label * Medical * Medical Follow Up [facility]: CPT AUDRA * Established With This Provider Yes * Date October 21, 2018 * Time 12:40 * Address of Clinic or Practice [address] * Follow Up Care Education Label * Mental Health Appt 1 * Mental Health 1st Embedded * Additional information 1ST BCT [facility]/1BCT CIRILO DIAZ [id number]@0930 FTR/60 PENDING DTEX21EVSINAM/DRUM2 HAMMAD ZHU [id number]@1500 FTR/20 IOP/DRUM1 FADUMO LUJAN [id number]@0930 GRP/120 PENDING 1ST BCT [facility]/1BCT RUPALI GIBBONS [id number]@0900 FTR/[address] BCT [facility]/1BCT RUPALI GIBBONS [id number]@1100 FTR/60 PENDING 1ST BCT [facility]/1BCT RUPALI GIBBONS [id number]@1000 FTR/60 PENDING BEHAVIORAL HEALTH CL/DRUM1 PAGE ROBLERO [id number]@0900 SPEC/90 PENDING 1ST BCT [facility]/1BCT RUPALI GIBBONS [id number]@1000 FTR/60 PENDING The amount of time spent in the coordination of care for this patient was approximately 30 minutes. Vital Signs/I&Os Vital Signs Date Time Temp Pulse Resp B/P (MAP) Pulse Ox O2 Delivery O2 Flow Rate FiO2 09/29/18 06:29 97.6 72 16 139/83 (101) 09/23/18 18:00 96 Laboratory Data Microbiology Microbiology 09/27/18 Urine Culture - Final, Complete Medications Scheduled Bupropion HCl (Wellbutrin Xl) 300 Mg Tab.er.24h, 300 MG PO DAILY for depression/anxiety, #7 Gabapentin (Neurontin) 300 Mg Capsule, 300 MG PO BID for anxiety, #14 Trazodone HCl (Trazodone HCl) 50 Mg Tablet, 50 MG PO QPM for insomnia, #7 Scheduled PRN Nicotine Polacrilex (Nicotine Gum) 2 Mg Gum, 4 MG PO Q2HP PRN for NICOTINE [place] THDRAWAL, #84 Allergies Coded Allergies: aripiprazole (Verified Allergy, Severe, angioedema, 09/23/18) Reports had tongue swelling while taking abilify and zoloft, unclear which medication contributed since both were discontinued. sertraline (Verified Allergy, Severe, angioedema, 09/23/18) Reports had tongue swelling while taking abilify and zoloft, unclear which medication contributed since both were discontinued. EDUARDA PANDEY MD Sep 29, 2018 13:33
== END 2018-09-29 11:43 | disposition home or self-care (01) | DRG 885 ==
LOC: M ED 21:28 → M ED INP 09-22 00:43 → M PSY 09-22 01:30
PROVIDERS: ADMIT Psychiatry & Neurology Psychiatry; ATTEND Psychiatry & Neurology Psychiatry
DX: F33.9 Major depressive disorder, recurrent, unspecified (principal); R45.851 Suicidal ideations; F41.1 Generalized anxiety disorder; F17.200 Nicotine dependence, unspecified, uncomplicated; Z79.899 Other long term (current) drug therapy; Z88.8 Allergy status to other drugs, medicaments and biological substances; R31.9 Hematuria, unspecified; N20.0 Calculus of kidney

== ENCOUNTER 2018-10-05 12:54 | Emergency (ER) | payer OTHER ==
[~2018-10-05] VITALS: Ht 170.2 cm; Wt 69.0 kg
[~2018-10-05 12:54] MED LIST changes: +NEUR300C PO; +NICO2GUM PO; +TRAZ-160 PO; +WELLTAB40 PO
[2018-10-05 13:55] LABS: HEMATOCRIT 45.8 % (42.0-52.0); HEMOGLOBIN 15.3 g/dl (13.5-17.5); MEAN CORPUSCULAR HGB CONC 33.4 g/dl (32.0-36.5); MEAN CORPUSCULAR VOLUME 83.7 fl (80.0-96.0); PLATELET COUNT, AUTOMATED 289 10^3/uL (150-450); RED BLOOD COUNT 5.47 10^6/uL (4.30-6.10); WHITE BLOOD COUNT 5.1 10^3/uL (4.0-10.0)
[2018-10-05 14:30] LABS: ACETAMINOPHEN LEVEL < 2.0 UG/ML (10.0-30.0); ALBUMIN 4.1 GM/DL (3.2-5.2); ALT/SGPT 22 U/L (12-78); BILIRUBIN,DIRECT 0.2 MG/DL (0.0-0.2); BILIRUBIN,TOTAL 0.8 MG/DL (0.2-1.0); BLOOD UREA NITROGEN 6 MG/DL (7-18); CALCIUM LEVEL 8.7 MG/DL (8.5-10.1); CARBON DIOXIDE LEVEL 25 MEQ/L (21-32); CHLORIDE LEVEL 111 MEQ/L (98-107); CREATININE FOR GFR 0.82 MG/DL (0.70-1.30); ETHYL ALCOHOL (ETHANOL) < 0.003 % (0.000-0.010); GLUCOSE, FASTING 100 MG/DL (70-100); SALICYLATE LEVEL < 1.7 MG/DL (5.0-30.0); SODIUM LEVEL 141 MEQ/L (136-145); TOTAL PROTEIN 7.5 GM/DL (6.4-8.2)
[2018-10-05 15:16] LABS: AMPHETAMINES LEVEL URINE NEGATIVE (NEGATIVE); BARBITURATES URINE NEGATIVE (NEGATIVE); BENZODIAZEPINES URINE NEGATIVE (NEGATIVE); CANNABINOIDS URINE NEGATIVE (NEGATIVE); COCAINE METABOLITE URINE NEGATIVE (NEGATIVE); METHADONE URINE NEGATIVE (NEGATIVE); OPIATES URINE NEGATIVE (NEGATIVE); PHENCYCLIDINE URINE NEGATIVE (NEGATIVE)
--- NOTE | 2018-10-05 22:06 | ECGEPIP ---
Stationary ECG Study - ED Test Date: 2018-10-05 Pat Name: MARIA ELENA MUHAMMAD Department: Room: - Gender: M Trouble Lineman: : 2000 Requested By: MONIQUE Lowe Order Number: [id number] Reading MD: Rc Brewer Measurements Intervals [place] Rate: 70 P: 60 VT: 168 QRS: 89 QRSD: 102 T: 65 QT: 346 QTc: 375 Interpretive Statements SINUS RHYTHM WITH SINUS ARRHYTHMIA Possible LVH Inferior T wave changes when compared to tracing done 09-23-18 Electronically Signed On 10-05-2018 22:06:00 EDT by Rc Brewer
[2018-10-06 01:24] VITALS: BP 122/64
== END 2018-10-06 01:29 | disposition short-term general hospital (02) ==
LOC: M ED 12:54
DX: R45.851 Suicidal ideations (principal); I49.9 Cardiac arrhythmia, unspecified; F17.210 Nicotine dependence, cigarettes, uncomplicated; F33.9 Major depressive disorder, recurrent, unspecified; F41.9 Anxiety disorder, unspecified; Z91.5 Personal history of self-harm; Z88.9 Allergy status to unspecified drugs, medicaments and biological substances; Z79.891 Long term (current) use of opiate analgesic; Z79.899 Other long term (current) drug therapy
CPT/HCPCS: 80048; 80076; 80307; 84443; 85027; 93005; 99284; G0480

== ENCOUNTER 2018-10-13 17:41 | Emergency (ER) | payer OTHER ==
[~2018-10-13] VITALS: Ht 170.2 cm; Wt 69.6 kg
[2018-10-13] MEDS ORDERED: NS 1,000 ML IV ONE (19:15)
--- NOTE | 2018-10-13 19:53 | REPVR ---
EXAM: CT Abdomen and Pelvis Without Contrast EXAM DATE/TIME: 10/13/2018 7:21 PM CLINICAL HISTORY: 18 years old, male; Abdominal pain; Generalized; Additional info: Dark urine TECHNIQUE: Imaging protocol: Axial computed tomography images of the abdomen and pelvis without contrast. Coronal and sagittal reformatted images were created and reviewed. Radiation optimization: All CT scans at this facility use at least one of these dose optimization techniques: automated exposure control; mA and/or kV adjustment per patient size (includes targeted exams where dose is matched to clinical indication); or iterative reconstruction. COMPARISON: CT ABD PELVIS W/O FOL BY WIT 09/28/2018 2:14 PM FINDINGS: Lungs: Clear appearing lung bases. Heart: The heart is normal in size. There is no pericardial effusion. ABDOMEN: Liver: Normal appearing liver. Gallbladder and bile ducts: Normal appearing gallbladder. Pancreas: Normal appearing pancreas. Spleen: Normal appearing spleen. Adrenals: Normal appearing adrenal glands. Kidneys and ureters: There is no evidence of hydronephrosis on the right. There is swelling of the left kidney. There is a 1 cm calcified stone in the left renal pelvis and this probably produces intermittent obstruction. There is prominence of the left renal pelvis. Stomach and bowel: The cecum is in the right pelvis and there is no evidence of inflammation in the region of the cecum or appendix. PELVIS: Bladder: The urinary bladder is empty and cannot be completely evaluated. Reproductive: Unremarkable as visualized. ABDOMEN and PELVIS: Intraperitoneal space: There is no evidence of pneumoperitoneum. There is no evidence of free fluid in the abdomen or the pelvis. Bones/joints: No acute fracture. No dislocation. Soft tissues: Unremarkable. Vasculature: The aorta is normal in size. Lymph nodes: There is no evidence of lymphadenopathy. IMPRESSION: 1 cm large calcified stone in the left renal pelvis and this would produce intermittent obstruction as the left kidney is swollen and there is prominence of the left renal pelvis. Electronically signed by: Adarsh Vela On 10/13/2018 19:52:58 PM
[2018-10-13] MEDS ORDERED: CIPROFLOXACIN 400 MG in APPROPRIATE DILUENT 1 EA IV ONE (20:15)
[2018-10-13] MEDS ORDERED: KETOROLAC 30 MG/ML VIAL (J1885) IV ONE (20:15)
[2018-10-13 20:36] LABS: BASO # 0.1 10^3/uL (0.0-0.2); BASO % 0.6 % (0.0-1.0); EOS # 0.1 10^3/uL (0.0-0.50); EOS % 0.7 % (0.0-3.0); HEMOGLOBIN 14.8 g/dl (13.5-17.5); LYMPH # 1.4 10^3/uL (1.5-6.5); LYMPH % 17.8 % (24.0-44.0); MEAN CORPUSCULAR HEMOGLOBIN 28.3 pg (27.0-33.0); MEAN CORPUSCULAR HGB CONC 33.6 g/dl (32.0-36.5); MEAN CORPUSCULAR VOLUME 84.1 fl (80.0-96.0); MONO # 0.6 10^3/uL (0.0-0.8); MONO % 6.8 % (0.0-5.0); PLATELET COUNT, AUTOMATED 268 10^3/uL (150-450); RED BLOOD COUNT 5.23 10^6/uL (4.30-6.10); WHITE BLOOD COUNT 8.1 10^3/uL (4.0-10.0)
[2018-10-13 20:47] LABS: INR 1.03; PROTHROMBIN TIME 13.6 SECONDS (12.1-14.4)
[2018-10-13 21:08] LABS: CK-MB VALUE MASS < 1.0 NG/ML (<3.6); CPK CREATINE PHOSPHOKINASE 128 U/L (39-308); MB/CK RELATIVE INDEX 0.78 (< OR =4); TROPONIN I < 0.02 NG/ML (< 0.10)
[2018-10-13 21:14] LABS: ALBUMIN 4.4 GM/DL (3.2-5.2); ALT/SGPT 18 U/L (12-78); AMYLASE 27 U/L (25-115); BILIRUBIN,DIRECT 0.2 MG/DL (0.0-0.2); BILIRUBIN,TOTAL 0.6 MG/DL (0.2-1.0); BLOOD UREA NITROGEN 9 MG/DL (7-18); CALCIUM LEVEL 8.8 MG/DL (8.5-10.1); CARBON DIOXIDE LEVEL 27 MEQ/L (21-32); CHLORIDE LEVEL 108 MEQ/L (98-107); CREATININE FOR GFR 0.86 MG/DL (0.70-1.30); GLUCOSE, FASTING 92 MG/DL (70-100); LIPASE 69 U/L (73-393); POTASSIUM SERUM 4.2 MEQ/L (3.5-5.1); SODIUM LEVEL 140 MEQ/L (136-145); TOTAL PROTEIN 7.2 GM/DL (6.4-8.2)
[2018-10-13] MEDS ORDERED: CIPR-249 PO (21:46)
[2018-10-13] MEDS ORDERED: NAPR-837 PO (21:46)
[2018-10-13] MEDS ORDERED: ZOFR4TAB16 PO (21:46)
[2018-10-13 21:52] VITALS: BP 145/86
[2018-10-14 08:50] LABS: CHLAMYDIA DNA AMPLIFICATION NEGATIVE (NEGATIVE); GC DNA AMPLIFICATION NEGATIVE (NEGATIVE)
--- NOTE | 2018-10-20 07:46 | ED PDOC ---
Post-Departure Follow-Up dr brewer and ft [facility] faxed formal report of ct abd/p for fu Kika Arauz MD October 20, 2018 07:46
== END 2018-10-13 21:52 | disposition home or self-care (01) ==
LOC: M ED 17:41
DX: R31.9 Hematuria, unspecified (principal); N10 Acute pyelonephritis; N23 Unspecified renal colic; Z72.0 Tobacco use; Z79.899 Other long term (current) drug therapy; Z88.8 Allergy status to other drugs, medicaments and biological substances
CPT/HCPCS: 74176; 80048; 80076; 81001; 82150; 82550; 82553; 83690; 84484; 85025; 85610; 86780; 87086; 87491; 87591; 96365; 96375; 99284; J0744; J1885

== ENCOUNTER 2018-10-15 00:41 | Emergency (ER) | payer OTHER ==
[~2018-10-15] VITALS: Ht 170.2 cm; Wt 69.0 kg
[2018-10-15 00:41] VITALS: BP 142/88
[~2018-10-15 00:41] MED LIST changes: +CIPR-249 PO; +NAPR-837 PO; +ZOFR4TAB16 PO
[2018-10-15] MEDS ORDERED: NAPROXEN 250 MG TAB PO ONE (01:30)
--- NOTE | 2018-10-15 01:38 | REP ---
Clinical: Trauma. Technique: Frontal view of the chest with four views of the right hemithorax. Findings: Frontal view of the chest demonstrates no acute cardiopulmonary process. Multiple views of the right hemithorax demonstrates no obvious acute rib fracture or pathology. Impression: Normal right rib series Electronically Signed by Ameya Shah MD 10/15/2018 01:30 A
== END 2018-10-15 01:40 | disposition home or self-care (01) ==
LOC: M ED 00:41
DX: R07.89 Other chest pain (principal); R06.00 Dyspnea, unspecified; Z88.8 Allergy status to other drugs, medicaments and biological substances; F17.210 Nicotine dependence, cigarettes, uncomplicated

== ENCOUNTER 2018-11-14 22:51 | Emergency (ER) | payer OTHER ==
[~2018-11-14] VITALS: Ht 170.2 cm; Wt 65.5 kg
[2018-11-14 22:51] VITALS: BP 152/87
[~2018-11-14 22:51] MED LIST changes: -TRAZ-160 PO; +TRAZ-252 PO
[2018-11-14] MEDS ORDERED: LEXA1TAB PO (23:00)
[2018-11-14] MEDS ORDERED: IBUP-1022 PO (23:00)
== END 2018-11-14 23:24 | disposition home or self-care (01) ==
LOC: M ED 22:51
DX: T81.31XA Disruption of external operation (surgical) wound, not elsewhere classified, initial encounter (principal); Y73.3 Surgical instruments, materials and gastroenterology and urology devices (including sutures) associated with adverse incidents; Z88.8 Allergy status to other drugs, medicaments and biological substances; Z79.899 Other long term (current) drug therapy

== ENCOUNTER 2019-03-02 13:36 | Emergency (ER) | payer OTHER ==
[~2019-03-02] VITALS: Ht 170.2 cm; Wt 65.9 kg
[~2019-03-02 13:36] MED LIST changes: +HYDR1TAB33 PO; -HYDRO50TAB PO; +LEXA1TAB PO
[2019-03-02] MEDS ORDERED: BUSP15TA47 PO (13:43)
[2019-03-02] MEDS ORDERED: HYDR-4570 PO (13:43)
[2019-03-02 14:22] LABS: HEMOGLOBIN 14.4 g/dl (13.5-17.5); MEAN CORPUSCULAR HEMOGLOBIN 29.7 pg (27.0-33.0); MEAN CORPUSCULAR HGB CONC 34.3 g/dl (32.0-36.5); MEAN CORPUSCULAR VOLUME 86.6 fl (80.0-96.0); PLATELET COUNT, AUTOMATED 225 10^3/uL (150-450); RED BLOOD COUNT 4.85 10^6/uL (4.30-6.10); WHITE BLOOD COUNT 5.8 10^3/uL (4.0-10.0)
[2019-03-02 15:12] LABS: ACETAMINOPHEN LEVEL < 2.0 UG/ML (10.0-30.0); ALBUMIN 3.7 GM/DL (3.2-5.2); ALT/SGPT 24 U/L (12-78); BILIRUBIN,DIRECT 0.1 MG/DL (0.0-0.2); BILIRUBIN,TOTAL 0.5 MG/DL (0.2-1.0); BLOOD UREA NITROGEN 10 MG/DL (7-18); CALCIUM LEVEL 8.8 MG/DL (8.5-10.1); CARBON DIOXIDE LEVEL 27 MEQ/L (21-32); CHLORIDE LEVEL 105 MEQ/L (98-107); CREATININE FOR GFR 0.89 MG/DL (0.70-1.30); ETHYL ALCOHOL (ETHANOL) < 0.003 % (0.000-0.010); GLUCOSE, FASTING 98 MG/DL (70-100); POTASSIUM SERUM 4.2 MEQ/L (3.5-5.1); SALICYLATE LEVEL < 1.7 MG/DL (5.0-30.0); SODIUM LEVEL 141 MEQ/L (136-145)
[2019-03-02 17:22] LABS: AMPHETAMINES LEVEL URINE NEGATIVE (NEGATIVE); BARBITURATES URINE NEGATIVE (NEGATIVE); BENZODIAZEPINES URINE NEGATIVE (NEGATIVE); CANNABINOIDS URINE NEGATIVE (NEGATIVE); COCAINE METABOLITE URINE NEGATIVE (NEGATIVE); METHADONE URINE NEGATIVE (NEGATIVE); OPIATES URINE NEGATIVE (NEGATIVE); PHENCYCLIDINE URINE NEGATIVE (NEGATIVE)
[2019-03-02 23:15] VITALS: BP 140/82
--- NOTE | 2019-03-03 20:40 | ECGEPIP ---
[facility] - ED Test Date: 2019-03-02 Pat Name: MARIA ELENA MUHAMMAD Department: Room: - Gender: Male Electronic Tech: JAMIA : 2000 Requested By: MONIQUE Lowe Order Number: [id number] Reading MD: Alejandra Kellogg Measurements Intervals [place] Rate: 62 P: 43 TX: 163 QRS: 90 QRSD: 97 T: 60 QT: 363 QTc: 370 Interpretive Statements SINUS RHYTHM LVH SIMILAR 10/05/18 Electronically Signed on 03-03-2019 20:39:39 EDT by Alejandra Kellogg
== END 2019-03-02 23:37 ==
LOC: M ED 13:36
DX: F32.9 Major depressive disorder, single episode, unspecified (principal); R45.851 Suicidal ideations; Z91.5 Personal history of self-harm; Z79.899 Other long term (current) drug therapy; Z88.8 Allergy status to other drugs, medicaments and biological substances
CPT/HCPCS: 36415; 80048; 80076; 80307; 84443; 85027; 93005; 99284; G0480

== ENCOUNTER 2019-05-23 14:16 | Inpatient (IN) | payer OTHER ==
[~2019-05-23] VITALS: Ht 170.2 cm; Wt 69.6 kg
[~2019-05-23 14:16] MED LIST changes: +BUSP15TA47 PO; +HYDR-4570 PO
[2019-05-23 15:05] LABS: BASO % 0.6 % (0.0-1.0); EOS % 0.6 % (0.0-3.0); HEMATOCRIT 48.7 % (42.0-52.0); HEMOGLOBIN 15.8 g/dl (13.5-17.5); LYMPH # 1.1 10^3/uL (1.5-5.0); LYMPH % 15.5 % (24.0-44.0); MEAN CORPUSCULAR HEMOGLOBIN 28.2 pg (27.0-33.0); MEAN CORPUSCULAR HGB CONC 32.4 g/dl (32.0-36.5); MEAN CORPUSCULAR VOLUME 86.8 fl (80.0-96.0); MONO # 0.3 10^3/uL (0.0-0.8); NEUTROPHILS # 5.3 10^3/uL (1.5-8.5); NEUTROPHILS % 78.2 % (36.0-66.0); PLATELET COUNT, AUTOMATED 246 10^3/uL (150-450); RED BLOOD COUNT 5.61 10^6/uL (4.30-6.10); WHITE BLOOD COUNT 6.8 10^3/uL (4.0-10.0)
[2019-05-23] MEDS ORDERED: NS 1,000 ML IV ONE (15:30)
[2019-05-23] MEDS ORDERED: PROMETHAZINE INJ 25 MG/ML VIAL (J2550) IV ONE (15:30)
[2019-05-23 15:34] LABS: ALBUMIN 4.2 GM/DL (3.2-5.2); ALT/SGPT 20 U/L (12-78); BILIRUBIN,DIRECT 0.2 MG/DL (0.0-0.2); BILIRUBIN,TOTAL 0.6 MG/DL (0.2-1.0); BLOOD UREA NITROGEN 7 MG/DL (7-18); CARBON DIOXIDE LEVEL 26 MEQ/L (21-32); CHLORIDE LEVEL 109 MEQ/L (98-107); GLUCOSE, FASTING 86 MG/DL (70-100); LIPASE 56 U/L (73-393); POTASSIUM SERUM 4.3 MEQ/L (3.5-5.1); SODIUM LEVEL 143 MEQ/L (136-145); TOTAL PROTEIN 7.6 GM/DL (6.4-8.2)
[2019-05-23] MEDS ORDERED: KETOROLAC 30 MG/ML VIAL (J1885) IV ONE (16:00)
[2019-05-23] MEDS ORDERED: IBUP1TAB7 PO (17:30)
[2019-05-23] MEDS ORDERED: HYDR50CA2 PO (17:30)
[2019-05-23] MEDS ORDERED: ONDANSETRON 4MG/2ML VIAL (J2405) IV PRN ×2 (18:00→18:15)
--- NOTE | 2019-05-23 18:06 | REPVR ---
PROCEDURE INFORMATION: Exam: US Scrotum Exam date and time: 05/23/2019 6:00 PM Age: 18 years old Clinical history: Scrotum pain; Additional info: Left epididymis ttp TECHNIQUE: Imaging protocol: Real-time ultrasound of the scrotum and contents with color Doppler and image documentation. COMPARISON: No relevant prior studies available. FINDINGS: Right testicle: The right testicle measures 4.5 x 2.1 by 3.1 cm. There is a single microcalcification in the right teste. Left testicle: Left testicle measures 4.6 x 2.1 by 3.1 cm. Echotexture of the testes is symmetric and homogeneous. Symmetric blood flow noted to both testes on color Doppler examination. Epididymides: Left epididymal head measures 9 mm in greatest diameter. Right epididymal head measures 9 mm in greatest diameter. No masses. Scrotum: Normal. IMPRESSION: Normal scrotal ultrasound Electronically signed by: Natalie Hernandez On 05/23/2019 18:06:33 PM
[2019-05-23] MEDS ORDERED: MORPHINE 4 MG/ML 1ML VIAL/SYRINGE (J2270) IV PRN (18:15)
[2019-05-23] MEDS ORDERED: hydrOXYzine 50 MG TAB PO PRN (18:15)
--- NOTE | 2019-05-23 18:26 | HPEPDOC ---
General Date of Admission 05/23/2019 Date of Service: May 23, 2019 Attending Physician: MY CHURCH MD Chief Complaint The patient is a 18-year-old male admitted with a reason for visit of Abdominal Pain. Source: Patient, RN/MD Exam Limitations: No limitations Timing/Duration: 24 hours Severity: Severe Associated Symptoms: Other (abdominal pain radiating to scrotum as well as left flank pain) History of Present Illness 18 yo man with a history of depression and anxiety who presented with acute severe abdominal pain and left flank pain, and radiation to his scrotum over a few hours. In the ED vitals were BP 141/85, HR 89, RR 20, T 98.4, saturating 100% on RA. Initial studies were notable for QBC 6.8, Hgb 15.8, Hct 48.7, platelets 246, Na 143, K 4.3, Cr 0.8, lipase [address] A/P showing a left 17mm renal pelvis stone with associated hydronephrosis. Urology was consulted and recommended admission to medicine with plan for OR tomorrow for stenting. He was otherwise non-toxic and will be admitted to [facility] with ongoing pain control. Home Medications Scheduled Buspirone HCl (Buspirone HCl) 15 Mg Tablet, 15 MG PO TID, (Reported) Escitalopram Oxalate (Lexapro) 10 Mg Tablet, 30 MG PO DAILY, (Reported) Scheduled PRN Hydroxyzine Pamoate (Hydroxyzine Pamoate) 50 Mg Capsule, 50 MG PO BID PRN for ANXIETY/AGITATION, (Reported) Ibuprofen (Ibuprofen) 800 Mg Tablet, 800 MG PO TID PRN for PAIN, (Reported) Allergies Coded Allergies: aripiprazole (Verified Allergy, Severe, angioedema, 10/15/18) Reports had tongue swelling while taking abilify and zoloft, unclear which medication contributed since both were discontinued. sertraline (Verified Allergy, Severe, angioedema, 10/15/18) Reports had tongue swelling while taking abilify and zoloft, unclear which medication contributed since both were discontinued. Past Medical History Medical History depression anxiety smoking Family History Significant Family History: No pertinent family hx Social History * Smoker: current smoker Alcohol: Denies Drugs: denies Recent Travel/Sick Contacts: Denies: Recent travel, Recent sick contacts Psychosocial History: Anxiety, Depression A-FIB/CHADSVASC A-FIB History Current/History of A-Fib/PAF?: No Age/Risk Factor Scoring CHADSVASC: CHADSVASC Response (Comments) Value Age Risk Factor Age < 65 years old 0 Gender Risk Factor Male 0 Hx of CHF No 0 Hx of HTN No 0 Hx of Stroke/TIA/or VTE No 0 Hx of Diabetes No 0 Hx of Vascular Disease No 0 Total 0 Treatment Treatment ordered: NONE Reason Anticoagulant not given: Not indicated/[id number] Review of Systems Constitutional: Denies: Chills, Fever, Night Sweats Eyes: Denies: Pain, Vision change ENT: Denies: Head Aches, Ear Pain, Dysphagia Skin: Denies: Rash, Lesions, Breakdown Pulmonary: Denies: Dyspnea, Cough Cardiovascular: Denies: Chest Pain, Palpitations, Orthopnea, Paroxysmal Noc. Dyspnea, Lt Headedness Gastrointestinal: Reports: Abdominal Pain; Denies: Nausea, Vomiting, Diarrhea, Constipation, Melena, Hematochezia Genitourinary: Reports: Other Symptoms (scrotal pain); Denies: Dysuria, Frequency, Incontinence, Hematuria, Retention Hematologic: Denies: Bruising, Bleeding Excessively Endocrine: Denies: Polydipsia, Polyphagia, Polyuria, Heat Intolerance, Cold Intolerance, Other Endocrine Sx Musculoskeletal: Reports: Back Pain (left back pain); Denies: Neck Pain, Shoulder Pain, Arm Pain, Hand Pain, Leg Pain, Foot Pain, Joint Pain, Muscle Pain, Spasms Neurological: Denies: Weakness, Numbness, Change in speech, Confusion Psych: Reports: Mood Normal; Denies: Depression, Memory Issues Physical Examination General Exam: Positive: Alert, No Acute Distress Eye Exam: Positive: PERRLA, Conjunctiva & lids normal, EOMI; Negative: Sclera icteric ENT Exam: Positive: Atraumatic, Mucous membr. moist/pink, Pharynx Normal Neck Exam: Positive: Supple; Negative: JVD, thyromegaly Chest Exam: Positive: Clear to auscultation, Normal air movement Heart Exam: Positive: Rate Normal, Regular Rhythm, Normal S1, Normal S2; Negative: Murmurs, Rubs Abdomen Exam: Positive: Normal bowel sounds, Soft, Tenderness (left lower Q john n, wraps to the back with left flank pain); Negative: Hepatospenomegaly, Mass, Hernia Extremity Exam: Positive: Normal pulses; Negative: Clubbing, Cyanosis, Edema Skin Exam: Positive: Nl turgor and temperature; Negative: Breakdown, Lesion Neuro Exam: Positive: Normal Gait, Normal Speech, Cranial Nerves 3-12 NL, Reflexes 2+ Psych Exam: Positive: Mental status NL, Mood NL, Oriented x 3 Vital Signs Vital Signs Date Time Temp Pulse Resp B/P (MAP) Pulse Ox O2 Delivery O2 Flow Rate FiO2 05/23/19 14:54 05/23/19 14:17 98.4 89 20 100 Room Air Laboratory Data Labs 24H Laboratory Tests 2 05/23/19 14:43: 05/23/19 14:47: Immature Granulocyte % (Auto) 0.1, Neutrophils (%) (Auto) 78.2H, Lymphocytes (%) (Auto) 15.5L, Monocytes (%) (Auto) 5.0, Eosinophils (%) (Auto) 0.6, Basophils (%) (Auto) 0.6, Neutrophils # (Auto) 5.3, Lymphocytes # (Auto) 1.1L, Monocytes # (Auto) 0.3, Eosinophils # (Auto) 0.0, Basophils # (Auto) 0.0, Nucleated Red Blood Cells % (auto) 0.0, Urine Color YELLOW, Urine Appearance HAZY, Urine pH 7.0, Urine Specific [place] 1.025, Urine Protein 2+H, Urine Glucose (UA) N EGATIVE, Urine Ketones TRACEH, Urine Blood 2+H, Urine Nitrite NEGATIVE, Urine Bilirubin NEGATIVE, Urine Urobilinogen 0.2, Urine Leukocyte Esterase TRACEH, Urine WBC (Auto) 16H, Urine RBC (Auto) TNTCH, Urine Hyaline Casts (Auto) 0, Urine Bacteria (Auto) NEGATIVE, Urine Squamous Epithelial Cells 0, Urine Amorphous Sediment SMALLH, Urine Mucus (Auto) SMALL, Urine Sperm (Auto) , Anion Gap 8, Calcium Level 9.0, Total Bilirubin 0.6, Direct Bilirubin 0.2, Aspartate Amino Transf (AST/SGOT) 16, Alanine Aminotransferase (ALT/SGPT) 20, Alkaline Phosphatase 70, Total Protein 7.6, Albumin 4.2, Albumin/Globulin Ratio 1.24, Lipase 56L CBC/BMP Laboratory Tests 05/23/19 14:47 Microbiology Microbiology 05/23/19 Urine Culture, Received Pending Assessment/Plan 18yo man with a history of depression and anxiety who presented with acute LLQ and flank pain and found to have an obstructive 17mmm left renal pelvis stone with associated hydronephrosis with no acute signs of infection, now being admitted to medicine with urology consulted for stent placement tomorrow. Plan: Left renal pelvis calculus with associated hydronephrosis and pain -Q6H toradol 30Q6H PRN -Q6H morphine 4 IV PRN for severe pain -zofran 4Q4PRN for nausea -CT confirmed obstructing 17mmstone, without inflammation and noted hydronephrosis -At this time ED provider also getting a scrotal US for scrotal pain withc/f epididymitis, UA was bland -NPO after midnight for OR tomorrow Depression and anxiety: -Continue home meds Diet: Regular DVT ppx: SCDs Dispo: medsurg Consults: Urology Plan / VTE VTE Prophylaxis Ordered?: Yes MY CHURCH MD May 23, 2019 18:26
[2019-05-23 18:40] LABS: CHLAMYDIA DNA AMPLIFICATION NEGATIVE (NEGATIVE); GC DNA AMPLIFICATION NEGATIVE (NEGATIVE)
[2019-05-23] MEDS ORDERED: KETOROLAC 30 MG/ML VIAL (J1885) IV PRN (20:00)
[2019-05-23] MEDS: busPIRone 5 MG TAB PO SCH (20:34)
[2019-05-23] MEDS: NS 1,000 ML IV SCH (20:35)
--- NOTE | 2019-05-23 20:55 | SMCUROLCON ---
Urology Consultation General Date of Consultation 05/23/19 Reason For Consultation This patient is seen for Nephrolithiasis. History of Present Illness The patient is a 18-year-old white male with a past medical history for calculi first diagnosed in October with the stone in the left kidney. No treatment was done at that time and the pain lasted about 2 weeks. He states he was in his usual state of health until last night when he began having left back pain. He was up till about 3:00 in the morning playing video games and was relatively fine after taking ibuprofen. This morning when he woke up at 11 AM he immediately had some nausea and vomiting and was noticing pain in the left groin and testicle and presented to the emergency room. CT scan was performed and shows a large left renal calculus obstructing the UPJ with mild hydronephrosis. Past Medical History Medical History Anxiety and depression Surgical Hstory None Family History Significant Family History: Other (his father has hypertension and a history of renal calculi) Social History Social History Patient is single with no children and is employed in the [employer] * Smoker: current smoker Alcohol: occationally Drugs: denies Medications Current Medications Current Medications Medications (Trade) Dose Ordered Sig/Tory Route PRN Reason Start Time Stop Time Status Last Admin Dose Admin Buspirone HCl (Buspar) 15 mg TID PO 05/23/19 21:00 05/23/19 20:34 Escitalopram Oxalate (Lexapro) 30 mg DAILY PO 05/24/19 09:00 Home Med (Med Rec Complete!) ASDIRECTED XX 05/23/19 17:45 05/23/19 17:32 DC Hydroxyzine HCl (Atarax) 50 mg BID PRN PO ANXIETY/AGITATION 05/23/19 18:15 Ketorolac Tromethamine (ToRADol) 30 mg Q6H PRN IV PAIN 05/23/19 20:00 05/28/19 19:59 Morphine Sulfate (Morphine Sulfate Inj) 4 mg Q6HP PRN IV SEVERE PAIN (PS 8-10) 05/23/19 18:15 Ondansetron HCl (ZOFRAN INJection) 4 mg Q4HP PRN IV NAUSEA OR VOMITING 05/23/19 18:15 Ondansetron HCl (ZOFRAN INJection) 4 mg Q6H PRN IV NAUSEA 05/23/19 18:00 05/23/19 18:46 DC Sodium Chloride 1,000 ml @ 125 mls/hr Q8H IV 05/23/19 17:54 05/23/19 20:35 Allergies Allergies: Coded Allergies: aripiprazole (Verified Allergy, Severe, angioedema, 10/15/18) Reports had tongue swelling while taking abilify and zoloft, unclear which medication contributed since both were discontinued. sertraline (Verified Allergy, Severe, angioedema, 10/15/18) Reports had tongue swelling while taking abilify and zoloft, unclear which medication contributed since both were discontinued. Review of Systems General: Denies: ROS Unobtainable, Chills, Night Sweats, Fatigue, Malaise, Normal Appetite, Other Symptoms Constitutional: Denies: Fever, Chills, Sweats, Weakness, Malaise, Other Eyes: Denies: Pain, Vision change, Conjunctivae inflammation, Eyelid inflammation, Redness, Other ENT: Denies: Head Aches, Ear Pain, Dysphagia, Sinus Congestion, Post Nasal Drip, Sore Throat, Epistaxis, Other Symptoms Skin: Denies: Rash, Lesions, Jaundice, Bruising, Itching, Dry, Breakdown, Nail Changes, Other Pulmonary: Denies: Dyspnea, Cough, Pleuritic Chest Pain, Other Symptoms Cardiovascular: Denies Chest Pain, Denies Palpitations, Denies Orthopnea, Denies Paroxysmal Noc. Dyspnea, Denies Edema, Denies Lt Headedness, Denies Other Symptoms Gastrointestinal: Reports: Nausea, Vomiting Genitourinary: Denies: Dysuria, Frequency, Incontinence, Hematuria, Retention, Other Symptoms Musculoskeletal: Denies: Neck Pain, Back Pain, Shoulder Pain, Arm Pain, Hand Pain, Leg Pain, Foot Pain, Joint Pain, Muscle Pain, Spasms, Other Symptoms Neurological: Denies: Weakness, Numbness, Incoordination, Change in Speech Psych: Denies: Mood Normal, Anxiety, Depression, Memory Issues, Thoughts of Self Harm, Anger, Thoughts of harming Other, Other Psych Physical Examination General Exam: Alert, No Acute Distress, Mild Distress EYE EXAM: PERRLA, Conjunctiva & lids normal, EOMI; No: Sclera icteric ENT EXAM: Atraumatic, Mucous membr. moist/pink, Pharynx Normal Neck Exam: Supple; No: JVD, thyromegaly Chest Exam: Clear to auscultation, Normal air movement Heart Exam: Rate Normal, Regular Rhythm, Normal S1, Normal S2; No: Murmurs, Rubs Abdomen Exam: Normal Bowel Sounds, Soft; No: Tenderness, Hepatospenomegaly Male Exam: Normal Genital Exam Male Exam He does have 2+ left-sided CVA tenderness Extremity Exam: Normal Pulses; No: Clubbing, Cyanosis, Edema Skin Exam: Nl turgor and temperature; No: Rash, Breakdown Neuro Exam: Normal Gait, Normal Speech, Cranial Nerves 3-12 NL, Reflexes 2+ Psych Exam: Mental status NL, Mood NL, Oriented x 3 Vital Signs/I&O Vital Signs Date Time Temp Pulse Resp B/P (MAP) Pulse Ox O2 Delivery O2 Flow Rate FiO2 05/23/19 18:34 96.6 87 18 128/74 (92) 98 Room Air Laboratory Data 24H Labs Laboratory Tests 2 05/23/19 14:43: Chlamydia trachomatis DNA (KATELIN) NEGATIVE, Neisseria gonorrhoeae DNA (KATELIN) NEGATIVE 05/23/19 14:47: Immature Granulocyte % (Auto) 0.1, Neutrophils (%) (Auto) 78.2H, Lymphocytes (%) (Auto) 15.5L, Monocytes (%) (Auto) 5.0, Eosinophils (%) (Auto) 0.6, Basophils (%) (Auto) 0.6, Neutrophils # (Auto) 5.3, Lymphocytes # (Auto) 1.1L, Monocytes # (Auto) 0.3, Eosinophils # (Auto) 0.0, Basophils # (Auto) 0.0, Nucleated Red Blood Cells % (auto) 0.0, Urine Color YELLOW, Urine Appearance HAZY, Urine pH 7.0, Urine Specific [place] 1.025, Urine Protein 2+H, Urine Glucose (UA) N EGATIVE, Urine Ketones TRACEH, Urine Blood 2+H, Urine Nitrite NEGATIVE, Urine Bilirubin NEGATIVE, Urine Urobilinogen 0.2, Urine Leukocyte Esterase TRACEH, Urine WBC (Auto) 16H, Urine RBC (Auto) TNTCH, Urine Hyaline Casts (Auto) 0, Urine Bacteria (Auto) NEGATIVE, Urine Squamous Epithelial Cells 0, Urine Amorphous Sediment SMALLH, Urine Mucus (Auto) SMALL, Urine Sperm (Auto) , Anion Gap 8, Calcium Level 9.0, Total Bilirubin 0.6, Direct Bilirubin 0.2, Aspartate Amino Transf (AST/SGOT) 16, Alanine Aminotransferase (ALT/SGPT) 20, Alkaline Phosphatase 70, Total Protein 7.6, Albumin 4.2, Albumin/Globulin Ratio 1.24, Lipase 56L CBC/BMP Laboratory Tests 05/23/19 14:47 Microbiology Microbiology 05/23/19 Urine Culture, Received Pending Assessment Left renal calculus with obstruction and mild hydronephrosis Plan Patient will be admitted to medicine for pain control and will be placed on the schedule tomorrow for a left ureteral stent insertion. He may be discharged after the stent is inserted. Time Spent on Consult: Time Spent / Consult (Minutes): 60 PAGE PRIETO MD May 23, 2019 20:55
[2019-05-24] VITALS (7 sets, daily range): BP systolic 116–137; BP diastolic 62–88
[2019-05-24] MEDS: NS 1,000 ML IV SCH ×2 (01:54→09:54)
--- NOTE | 2019-05-24 06:14 | REP ---
CT ABDOMEN AND PELVIS WITHOUT IV OR ORAL CONTRAST: Renal stone protocol. HISTORY: Left flank pain. History of kidney stone. Comparison CT study October 13, 2018. CT FINDINGS: Digital preliminary robotics systems engineer radiographs demonstrate a large calculus over lying the medial aspect of the left kidney. The bowel gas pattern is normal. The lung bases are clear on axial CT images. The liver and the spleen are normal in size homogeneous in texture. No abnormalities noted in the gallbladder or the pancreas. No adrenal lesion is seen. There is mild left-sided hydronephrosis due to a large left renal pelvic calculus. This measures 17 mm in greatest diameter. There is oz pelvic edema and mural thickening is seen in the renal pelvis. No other urinary tract calculus is seen. No bladder calculus is observed. There is a calcification at the cecal tip consistent with an appendicolith. No inflammatory changes. Seminal vesicles, prostate and urinary bladder are unremarkable. No abdominal wall defect is seen. IMPRESSION: 17 mm calculus in the left renal pelvis with hydronephrosis and periureteral edema. The calculus is considerably larger than it was on October 13, 2018. Electronically Signed by Luis De La Torre MD 05/24/2019 08:44 A
[2019-05-24 06:49] LABS: MEAN CORPUSCULAR HEMOGLOBIN 28.2 pg (27.0-33.0); MEAN CORPUSCULAR HGB CONC 31.9 g/dl (32.0-36.5); MEAN CORPUSCULAR VOLUME 88.5 fl (80.0-96.0); PLATELET COUNT, AUTOMATED 218 10^3/uL (150-450); RED BLOOD COUNT 4.86 10^6/uL (4.30-6.10); WHITE BLOOD COUNT 6.2 10^3/uL (4.0-10.0)
[2019-05-24 06:50] LABS: HEMOGLOBIN 13.7 g/dl (13.5-17.5)
[2019-05-24 07:00] LABS: BLOOD UREA NITROGEN 9 MG/DL (7-18); CALCIUM LEVEL 8.6 MG/DL (8.5-10.1); CARBON DIOXIDE LEVEL 26 MEQ/L (21-32); CHLORIDE LEVEL 111 MEQ/L (98-107); CREATININE FOR GFR 0.81 MG/DL (0.70-1.30); GLUCOSE, FASTING 97 MG/DL (70-100); SODIUM LEVEL 143 MEQ/L (136-145)
[2019-05-24] MEDS: ESCITALOPRAM OXALATE 10 MG TAB (LEXAPRO) PO SCH (07:36)
[2019-05-24] MEDS: busPIRone 5 MG TAB PO SCH ×3 (07:36→20:05)
[2019-05-24] MEDS ORDERED: ceFAZolin SOD 2 GM in IV 1 EA IV ONE (11:00)
[2019-05-24] MEDS ORDERED: dexameTHASONE 4 MG/ML 1ML VIAL (J1100) As Ordered ONE (14:30)
[2019-05-24] MEDS ORDERED: LIDOCAINE 2% INJ 100 MG/5 ML SDV (FOR ANES.) As Ordered ONE (14:30)
[2019-05-24] MEDS ORDERED: ONDANSETRON 4MG/2ML VIAL (J2405) As Ordered ONE (14:30)
[2019-05-24] MEDS ORDERED: PROPOFOL 200 MG/20 ML VIAL As Ordered ONE (14:30)
--- NOTE | 2019-05-24 15:05 | IPNPDOC ---
Text Note Date of Service The patient was seen on 05/24/19. NOTE Subjective: -Feels ok, pain control overnight was adequate -Afebrile, hemodynamically stable, no N/V or aldo hematuria VITAL SIGNS: Please see below. GENERAL: NAD HEENT: NCAT, PERRLA, EOMI, MMM NECK: supple, no JVD CARDIOVASCULAR EXAMINATION: RRR, no mrg RESPIRATORY EXAMINATION: CTAB ABDOMINAL EXAMINATION: soft, tender left lower quadrant and left flank pain but improved from prior EXTREMITIES: WWP, no LE edema SKIN: no rashes NEUROLOGICAL EXAMINATION: CN2-12 intact, normal gait PSYCHIATRIC EXAMINATION: AOx3 LABORATORY DATA: Please see below. Grossly normal CBC and BMP IMAGING: CT A/P: Digital preliminary ceramic coater machine radiographs demonstrate a large calculus over lying the medial aspect of the left kidney. The bowel gas pattern is normal. The lung bases are clear on axial CT images. The liver and the spleen are normal in size homogeneous in texture. No abnormalities noted in the gallbladder or the pancreas. No adrenal lesion is seen. There is mild left-sided hydronephrosis due to a large left renal pelvic calculus. This measures 17 mm in greatest diameter. There is oz pelvic edema and mural thickening is seen in the renal pelvis. No other urinary tract calculus is seen. No bladder calculus is observed. There is a calcification at the cecal tip consistent with an appendicolith. No inflammatory changes. Seminal vesicles, prostate and urinary bladder are unremarkable. No abdominal wall defect is seen. IMPRESSION: 17 mm calculus in the left renal pelvis with hydronephrosis and periureteral edema. The calculus is considerably larger than it was on October 13, 2018. 18yo man with a history of depression and anxiety who presented with acute LLQ and flank pain and found to have an obstructive 17mmm left renal pelvis stone with associated hydronephrosis with no acute signs of infection, admitted to medicine with urology consulted for stent placement. PLAN: Left renal pelvis calculus with associated hydronephrosis and pain -Q6H toradol 30Q6H PRN -Q6H morphine 4 IV PRN for severe pain -zofran 4Q4PRN for nausea -CT confirmed obstructing 17mm stone, without inflammation and noted hydronephrosis -s/p normal scrotal US and GCCT testing for scrotal pain, and UA was bland -Urology on board --> plan is to get stent sometime today Depression and anxiety: -Continue home meds Diet: Regular DVT ppx: SCDs Dispo: medsurg Consults: Urology VS,Mayda, I+O VS, Mayda, I+O Laboratory Tests 05/23/19 14:47 05/24/19 06:16 Vital Signs Date Time Temp Pulse Resp B/P (MAP) Pulse Ox O2 Delivery O2 Flow Rate FiO2 05/24/19 06:00 97.8 59 16 117/63 (81) 98 Room Air I&O- Last 24 Hours up to 6 AM 05/24/19 06:00 Intake Total 1000 ml Balance 1000 ml MY CHURCH MD May 24, 2019 07:33
[2019-05-24] MEDS ORDERED: CONRAY-60 60% 50ML VIAL (Q9961) As Ordered ONE (17:19)
[2019-05-24] MEDS ORDERED: fentaNYL 100 MCG/2 ML INJECTION (J3010) As Ordered ONE (17:23)
[2019-05-24] MEDS ORDERED: MIDAZOLAM INJ 2 MG/2 ML VIAL (J2250) As Ordered ONE (17:23)
[2019-05-24] MEDS ORDERED: ceFAZolin 2 GM/D5W 50 ML IV BAG (J0690 PER 500MG) As Ordered ONE (17:29)
--- NOTE | 2019-05-24 18:58 | REP ---
REASON: Retrograde on the left. A single spot view of the abdomen was obtained in my [place] using a portable C-ARM device during a retrograde pyelogram. There is opacification of the left renal collecting system and proximal ureter. 13 seconds of fluoroscopy time was provided to Dr. Sanchez Seals for the exam. Electronically Signed by Tez Engel DO 05/24/2019 07:53 P
[2019-05-24] MEDS ORDERED: PERCOCET 5MG/325MG TAB PO PRN (19:00)
[2019-05-24] MEDS ORDERED: HYDROMORPHONE HCL 0.5 MG/ 0.5 ML SYRINGE (J1170 PER 1) IV PRN (19:00)
[2019-05-24] MEDS ORDERED: ONDANSETRON 4MG/2ML VIAL (J2405) IV PRN (19:00)
[2019-05-24] MEDS ORDERED: LR 1,000 ML IV SCH ×2 (19:00)
[2019-05-24] MEDS ORDERED: fentaNYL 100 MCG/2 ML INJECTION (J3010) IV PRN (19:00)
[2019-05-24] MEDS: IBUPROFEN 600 MG TAB PO PRN (20:05)
[2019-05-25] MEDS: IBUPROFEN 600 MG TAB PO PRN ×2 (02:12→09:18)
[2019-05-25 02:14] VITALS: BP 128/63
[2019-05-25 06:00] VITALS: BP 124/64
[2019-05-25 08:00] LABS: HEMATOCRIT 42.3 % (42.0-52.0); HEMOGLOBIN 14.4 g/dl (13.5-17.5); MEAN CORPUSCULAR HEMOGLOBIN 28.8 pg (27.0-33.0); MEAN CORPUSCULAR VOLUME 84.6 fl (80.0-96.0); PLATELET COUNT, AUTOMATED 259 10^3/uL (150-450); WHITE BLOOD COUNT 11.5 10^3/uL (4.0-10.0)
[2019-05-25 08:12] LABS: BLOOD UREA NITROGEN 8 MG/DL (7-18); CALCIUM LEVEL 8.6 MG/DL (8.5-10.1); CARBON DIOXIDE LEVEL 26 MEQ/L (21-32); CHLORIDE LEVEL 109 MEQ/L (98-107); CREATININE FOR GFR 0.79 MG/DL (0.70-1.30); GLUCOSE, FASTING 129 MG/DL (70-100); POTASSIUM SERUM 3.8 MEQ/L (3.5-5.1); SODIUM LEVEL 141 MEQ/L (136-145)
[2019-05-25] MEDS: ESCITALOPRAM OXALATE 10 MG TAB (LEXAPRO) PO SCH (09:16)
[2019-05-25] MEDS: busPIRone 5 MG TAB PO SCH (09:16)
--- NOTE | 2019-05-25 12:57 | DS.PDOC ---
Discharge Summary General Date of Admission May 23, 2019 at 17:54 Date of Discharge 05/25/2019 Attending Physician: MY CHURCH MD Specialist/Consultants Involve: PAGE PRIETO MD Discharge Summary PROCEDURES PERFORMED DURING STAY: L ureteral stent placement 05/24/2019 ADMITTING DIAGNOSES: 1. Nephrolithiasis DISCHARGE DIAGNOSES: 1. Left obstructing kidney stone with hydronephrosis s/p Left ureteral stent placemetn COMPLICATIONS/CHIEF COMPLAINT: L sided flank pain HISTORY OF PRESENT ILLNESS: Patient is a 18 yo man with a history of depression and anxiety and known renal stone since 10/2018 who presented with acute severe abdominal pain and left flank pain, and radiation to his scrotum over a few hours. HOSPITAL COURSE: In the ED vitals were BP 141/85, HR 89, RR 20, T 98.4, saturating 100% on RA. Initial studies were notable for QBC 6.8, Hgb 15.8, Hct 48.7, platelets 246, Na 143, K 4.3, Cr 0.8, lipase [address] a [address] A/P showing a left 17mm renal pelvis stone with associated hydronephrosis. Urology was consulted and recommended admission to medicine with plan for stenting. He was otherwise non- toxic and admitted to [facility] for pain control and on 05/24 he had a stent placed by Dr. Prieto. He is now being discharged home with ibuprofen for pain and will follow up outpatient with urology and his PCP. DISCHARGE MEDICATIONS: Please see below. ALLERGIES: Please see below. PHYSICAL EXAMINATION ON DISCHARGE: VITAL SIGNS: Please see below. GENERAL: NAD HEENT: NCAT, PERRLA, EOMI, MMM NECK: supple, no JVD CARDIOVASCULAR EXAMINATION: RRR, no mrg RESPIRATORY EXAMINATION: CTAB ABDOMINAL EXAMINATION: soft, tender left lower quadrant and left flank pain but improved from prior EXTREMITIES: WWP, no LE edema SKIN: no rashes NEUROLOGICAL EXAMINATION: CN2-12 intact, normal gait PSYCHIATRIC EXAMINATION: AOx3 LABORATORY DATA: Please see below. IMAGING: CT A/P: Digital preliminary executive sous chef radiographs demonstrate a large calculus over lying the medial aspect of the left kidney. The bowel gas pattern is normal. The lung bases are clear on axial CT images. The liver and the spleen are normal in size homogeneous in texture. No abnormalities noted in the gallbladder or the pancreas. No adrenal lesion is seen. There is mild left-sided hydronephrosis due to a large left renal pelvic calculus. This measures 17 mm in greatest diameter. There is oz pelvic edema and mural thickening is seen in the renal pelvis. No other urinary tract calculus is seen. No bladder calculus is observed. There is a calcification at the cecal tip consistent with an appendicolith. No inflammatory changes. Semi nal vesicles, prostate and urinary bladder are unremarkable. No abdominal wall defect is seen. IMPRESSION: 17 mm calculus in the left renal pelvis with hydronephrosis and periureteral edema. The calculus is considerably larger than it was on October 13, 2018. PROGNOSIS: Good ACTIVITY: As tolerated DIET: Regular DISCHARGE PLAN: Home with urology and PCP follow up Remain compliant with treatment plan and medications Return to the ER if you experience any problems DISPOSITION: Home DISCHARGE INSTRUCTIONS: Home with urology and PCP follow up ITEMS TO FOLLOWUP ON ON OUTPATIENT: 1. Kidney stone s/p stenting - has Urology follow up 2. PCP follow up DISCHARGE CONDITION: Stable TIME SPENT ON DISCHARGE: 40 minutes. Vital Signs/I&Os Vital Signs Date Time Temp Pulse Resp B/P (MAP) Pulse Ox O2 Delivery O2 Flow Rate FiO2 05/24/19 06:00 97.8 59 16 117/63 (81) 98 Room Air I&O- Last 24 Hours up to 6 AM 05/24/19 06:00 Intake Total 1000 ml Balance 1000 ml Laboratory Data Labs 24H Laboratory Tests 2 05/23/19 14:43: Chlamydia trachomatis DNA (KATELIN) NEGATIVE, Neisseria gonorrhoeae DNA (KATELIN) NEGATIVE 05/23/19 14:47: Immature Granulocyte % (Auto) 0.1, Neutrophils (%) (Auto) 78.2H, Lymphocytes (%) (Auto) 15.5L, Monocytes (%) (Auto) 5.0, Eosinophils (%) (Auto) 0.6, Basophils (%) (Auto) 0.6, Neutrophils # (Auto) 5.3, Lymphocytes # (Auto) 1.1L, Monocytes # (Auto) 0.3, Eosinophils # (Auto) 0.0, Basophils # (Auto) 0.0, Nucleated Red Blood Cells % (auto) 0.0, Urine Color YELLOW, Urine Appearance HAZY, Urine pH 7.0, Urine Specific [place] 1.025, Urine Protein 2+H, Urine Glucose (UA) NEGATIVE, Urine Ketones TRACEH, Urine Blood 2+H, Urine Nitrite NEGATIVE, Urine Bilirubin NEGATIVE, Urine Urobilinogen 0.2, Urine Leukocyte Esterase TRACEH, Urine WBC (Auto) 16H, Urine RBC (Auto) TNTCH, Urine Hyaline Casts (Auto) 0, Ur ine Bacteria (Auto) NEGATIVE, Urine Squamous Epithelial Cells 0, Urine Amorphous Sediment SMALLH, Urine Mucus (Auto) SMALL, Urine Sperm (Auto) , Anion Gap 8, Calcium Level 9.0, Total Bilirubin 0.6, Direct Bilirubin 0.2, Aspartate Amino Transf (AST/SGOT) 16, Alanine Aminotransferase (ALT/SGPT) 20, Alkaline Phosphatase 70, Total Protein 7.6, Albumin 4.2, Albumin/Globulin Ratio 1.24, Lipase 56L 05/24/19 06:16: Nucleated Red Blood Cells % (auto) 0.0, Anion Gap 6L, Calcium Level 8.6 CBC/BMP Laboratory Tests 05/23/19 14:47 05/24/19 06:16 Microbiology Microbiology 05/23/19 Urine Culture, Received Pending Discharge Medications Scheduled Buspirone HCl (Buspirone HCl) 15 Mg Tablet, 15 MG PO TID, (Reported) Escitalopram Oxalate (Lexapro) 10 Mg Tablet, 30 MG PO DAILY, (Reported) Scheduled PRN Hydroxyzine Pamoate (Hydroxyzine Pamoate) 50 Mg Capsule, 50 MG PO BID PRN for ANXIETY/AGITATION, (Reported) Ibuprofen (Ibuprofen) 800 Mg Tablet, 800 MG PO TID PRN for PAIN, (Reported) Allergies Coded Allergies: aripiprazole (Verified Allergy, Severe, angioedema, 10/15/18) Reports had tongue swelling while taking abilify and zoloft, unclear which medication contributed since both were discontinued. sertraline (Verified Allergy, Severe, angioedema, 10/15/18) Reports had tongue swelling while taking abilify and zoloft, unclear which medication contributed since both were discontinued. MY CHURCH MD May 24, 2019 07:30 ULISSES MUJICA MD May 25, 2019 12:57
--- NOTE | 2019-05-25 19:29 | RO ---
DATE OF PROCEDURE: 05/24/2019 PREPROCEDURE DIAGNOSIS: Left ureteropelvic junction (UPJ) calculus with obstruction. POSTPROCEDURE DIAGNOSIS: Left ureteropelvic junction calculus with obstruction. PROCEDURE: Cystoscopy, left retrograde pyelogram, and ureteral stent insertion. SURGEON: Dr. Sanchez Seals GAS BRAZER: ANESTHESIA: General. INDICATION FOR OPERATION: This is a 18-year-old white male who presented to the emergency room with severe left flank pain, found to have an obstructing UPJ calculus, too large to pass spontaneously. He was, therefore, brought to the operating room for a stent insertion prior to extracorporeal shock wave lithotripsy (ESWL) treatment. DESCRIPTION OF PROCEDURE: The patient was placed on the table in the supine position and given general anesthesia. He was then placed in the lithotomy position and prepped with Betadine paint and draped in an aseptic manner. Time-out was then performed. A 22-Kyrgyz cystoscope was then inserted into the meatus and advanced under direct vision of a 30-degree lens to the bladder. The urethral channel and prostate channel were normal. The bladder appeared normal. The left ureteral orifice was then catheterized with a 5-Kyrgyz Pollack catheter and retrograde injection of Conray showed an obstruction at the UPJ area. A wire guide was then passed up to the renal pelvis over which a 5-Kyrgyz double J stent was passed. Both ends curled well when the wire was removed. The bladder was then drained, the cystoscope was removed, and the patient was awakened and sent to the recovery room in stable condition having tolerated the procedure well.
== END 2019-05-25 12:00 | disposition home or self-care (01) | DRG 661 ==
LOC: M ED 14:16 → M ED INP 17:54 → M MS4PR 05-24 09:25
PROVIDERS: ADMIT Internal Medicine; ATTEND Internal Medicine
PROC: 0T778DZ Dilation of Left Ureter with Intraluminal Device, Via Natural or Artificial Opening Endoscopic (ICD-10-PCS; principal; 2019-05-24 10:00)
DX: N13.2 Hydronephrosis with renal and ureteral calculous obstruction (principal); F32.9 Major depressive disorder, single episode, unspecified; F41.9 Anxiety disorder, unspecified; Z79.899 Other long term (current) drug therapy; Z88.8 Allergy status to other drugs, medicaments and biological substances; F17.210 Nicotine dependence, cigarettes, uncomplicated

== ENCOUNTER 2019-06-10 06:57 | Day surgery (SDC) | payer OTHER ==
[~2019-06-10] VITALS: Ht 170.2 cm; Wt 68.5 kg
[~2019-06-10 06:57] MED LIST changes: +CIPR500T3 PO; +HYDR50CA2 PO; +IBUP1TAB7 PO; +LIDOCAINE 1% MDV 20ML VIAL SQ PRN; +LR 1,000 ML IV ONE; +OXYB5TAB10 PO; +ceFAZolin SOD 2 GM in IV 1 EA IV ONE
--- NOTE | 2019-06-10 07:49 | REP ---
Clinical: Kidney stone. Technique: Single supine view of the abdomen and pelvis. Findings: A 14 mm stone is identified in the left renal pelvis along with left ureteral stent in satisfactory position. Bowel gas pattern is normal. No organomegaly. Skeletal structures are intact. Impression: Left renal calculus and left renal stent. Electronically Signed by Ameya Shah MD 06/10/2019 07:40 A
[2019-06-10] MEDS ORDERED: LIDOCAINE 2% INJ 100 MG/5 ML SDV (FOR ANES.) As Ordered ONE (08:39)
[2019-06-10] MEDS ORDERED: PROPOFOL 200 MG/20 ML VIAL As Ordered ONE (08:39)
[2019-06-10] MEDS ORDERED: ONDANSETRON 4MG/2ML VIAL (J2405) As Ordered ONE (08:39)
[2019-06-10] MEDS ORDERED: MIDAZOLAM INJ 2 MG/2 ML VIAL (J2250) As Ordered ONE (08:40)
[2019-06-10] MEDS ORDERED: fentaNYL 100 MCG/2 ML INJECTION (J3010) As Ordered ONE (08:40)
--- NOTE | 2019-06-10 10:15 | RO ---
DATE OF PROCEDURE: 06/10/2019 PREPROCEDURE DIAGNOSIS: Left kidney stone. POSTPROCEDURE DIAGNOSIS: Left kidney stone. PROCEDURE: Left extracorporeal shockwave lithotripsy. SURGEON: Dr. Inocencio Branham BREAD DOUGH MIXER: None. ANESTHESIA: Monitored anesthesia care (MAC). OPERATIVE INDICATIONS: This is a 18-year-old male who had a left ureteral stent placed for an approximately 1 cm left ureteropelvic junction stone two weeks ago. He is brought to the operating room today for treatment. DESCRIPTION OF PROCEDURE: The patient was brought to the operating room and MAC anesthesia was administered. Prophylactic antibiotics were infused. He was then placed in the supine position in preparation for left sided extracorporeal shockwave lithotripsy. Fluoroscopy was utilized to monitor stone position and fragmentation throughout the procedure. Shockwaves were then delivered to the left sided kidney stone ungated. There were no arrhythmias. The stone did appear to fragment, but it was difficult to tell if it was adequately fragmented for all of the fragments to pass. After 2500 shocks, the procedure was concluded. The patient was then awakened from anesthesia and transported to the recovery room in stable condition. Estimated blood loss: 0 mL. Complications: None. Specimens: None. Plan: The patient will followup in the clinic in a few weeks with imaging prior to assess for residual stone burden. If he has passed all of the larger stone fragments at that point, we will take his stent out. Otherwise, he might have to be brought back to the operating room for left ureteroscopy with laser lithotripsy. CINTHYA
[2019-06-10 10:45] VITALS: BP 133/88
[2019-06-10] MEDS ORDERED: PERCOCET 5MG/325MG TAB PO ONE (11:15)
[2019-06-10] MEDS ORDERED: PERCOCET 5MG/325MG TAB PO PRN (11:15)
== END 2019-06-10 12:36 | disposition home or self-care (01) ==
LOC: M SDC 06:57
PROVIDERS: ATTEND Urology
DX: N20.0 Calculus of kidney (principal); F41.9 Anxiety disorder, unspecified; F17.218 Nicotine dependence, cigarettes, with other nicotine-induced disorders; Z88.8 Allergy status to other drugs, medicaments and biological substances; Z79.899 Other long term (current) drug therapy
CPT/HCPCS: 50590; 74018; J0690; J2250; J2405; J3010

== ENCOUNTER → 2019-07-12 | Outpatient (REF) | payer OTHER ==
[~2019-07-12] MED LIST changes: -LIDOCAINE 1% MDV 20ML VIAL SQ PRN; -LR 1,000 ML IV ONE; -ceFAZolin SOD 2 GM in IV 1 EA IV ONE
[2019-07-12 18:28] LABS: APPEARANCE, URINE CLOUDY (CLEAR); BACTERIA, URINE AUTO 1+ (NEGATIVE); BILIRUBIN, URINE AUTO NEGATIVE (NEGATIVE); BLOOD, URINE BLOOD 3+ (NEGATIVE); COLOR, URINE YELLOW (YELLOW); GLUCOSE, URINE (UA) AUTO NEGATIVE (NEGATIVE); KETONE, URINE AUTO NEGATIVE (NEGATIVE); LEUKOCYTE ESTERASE, URINE AUTO 3+ (NEGATIVE); MUCUS, URINE SMALL (NEGATIVE); NITRITE, URINE AUTO NEGATIVE (NEGATIVE); PROTEIN, URINE AUTO 2+ mg/dL (NEGATIVE); RBC, URINE AUTO TNTC /HPF (0-3); SPECIFIC GRAVITY URINE AUTO 1.019 (1.002-1.035); SQUAMOUS EPITHELIAL CELL UR AU 0 /HPF (0-6); UROBILINOGEN, URINE AUTO 0.2 mg/dL (0.0-2.0); WBC, URINE AUTO 19 /HPF (0-3)
== END ==
LOC: M SMT 16:50
PROVIDERS: ATTEND Nurse Practitioner Family
DX: N20.0 Calculus of kidney (principal)